=== PATIENT | female | born 1975 | race Caucasian/White ===

== ENCOUNTER 2018-04-25 18:12 | Emergency (ER) | payer SELFPAY ==
[2018-04-25] MEDS ORDERED: NA CHLORIDE 0.9% 1,000 ML ONE (18:55)
[2018-04-25 19:04] LABS: Urine Blood 1+ (NEG); Urine Glucose NEGATIVE (NEG); Urine Protein NEGATIVE (NEG); Urine Specific Gravity 1.015 (1.005-1.030)
--- NOTE | 2018-04-25 19:06 | RAD REPORT ---
EXAM DESCRIPTION: CT - Stone Protocol - 04/25/2018 6:54 pm CLINICAL HISTORY: Abdominal pain. Lower abdominal pain. Urinary frequency COMPARISON: 2012 TECHNIQUE: Computed axial tomography of the abdomen pelvis was obtained without oral or IV contrast. Lack of IV and oral contrast limits evaluation of solid organs, bowel, and vessels. Coronal reformat nirali images were obtained and reviewed. All CT scans are performed using dose optimization technique as appropriate and may include automated exposure control or mA/KV adjustment according to patient size. FINDINGS: Bilateral renal calculi are present without hydronephrosis. An ureteral calculus is not no nirali. A bladder calculus is not present. The bladder is distended. The wall is mildly thickened. The liver, spleen, pancreas and adrenals appear grossly normal There is no evidence of diverticulitis. The appendix appears normal IMPRESSION: Bilateral nonobstructing renal calculi Bladder distention Mild bladder wall thickening may indicate cystitis
[2018-04-25 19:14] LABS: Absolute Monocytes 0.6 K/uL (0.1-1.3); Absolute Neutrophil 4.7 K/uL (1.8-8.0); Basophils % 0.7 % (0-1.3); Hematocrit 32.7 % (36.0-45.0); Lymphocytes % 25.2 % (15.3-44.8); MCH 24.1 pg (27.0-35.0); MCV 75.7 fL (80-100); MPV 9.1 fL (7.6-11.3); Monocytes % 7.4 % (3.3-12.3); RBC Red Blood Cell Count 4.33 M/uL (3.86-4.86)
[2018-04-25 19:21] LABS: ALT/SGPT 16 U/L (12-78); AST/SGOT 8 U/L (15-37); Albumin 3.7 g/dL (3.4-5.0); Alkaline Phosphatase 86 U/L (45-117); BUN Blood Urea Nitrogen 6 mg/dL (7-18); Bicarbonate 24 mmol/L (21-32); Bilirubin Direct < 0.1 mg/dL (0-0.2); Bilirubin Total 0.2 mg/dL (0.2-1.0); Glucose Level 66 mg/dL (74-106); Lipase 172 U/L (73-393); Potassium 3.4 mmol/L (3.5-5.1); Sodium Level 142 mmol/L (136-145)
[2018-04-25] MEDS ORDERED: CEFTRIAXONE/SWI 1gm 1 GM/10 ML SYR ONE (19:24)
[2018-04-25 19:26] LABS: Urine Bacteria LOADED /HPF (<20); Urine RBC <5 /HPF (NONE SEEN)
[2018-04-25 19:27] LABS: Calcium Oxalate Crystals- Ur FEW (NONE SEEN); Urine Culture Reflex Order NOT NEEDED
[2018-04-25] MEDS ORDERED: KETOROLAC 30 MG/ML INJ ONE (19:27)
[2018-04-25] MEDS ORDERED: ONDANSETRON 4 MG/2 ML VIAL ONE (19:31)
[2018-04-25] MEDS ORDERED: FENTANYL CITR 100 MCG/2 ML ONE (20:04)
--- NOTE | 2018-04-25 20:31 | ER ---
Nurse's Notes [facility] Name: Britney Wright Age: 42 yrs Sex: Female : 1975 Arrival Date: 04/25/2018 Time: 18:14 Bed 28 Private MD: Diagnosis: Urinary tract infection, site not specified Presentation: 04/25 18:18 Presenting complaint: Patient states: "I was diagnosed with a UTI about a week ago and aa5 I'm still taking Cipro for it but it's getting worse, like my back is hurting now". Pt c/o lower back pain. Transition of care: patient was not received from another setting of care. Onset of symptoms was April 2018. Risk Assessment: Do you want to hurt yourself or someone else? Patient reports no desire to harm self or others. Initial Sepsis Screen: Does the patient meet any 2 criteria? No. Patient's initial sepsis screen is negative. Does the patient have a suspected source of infection? No. Patient's initial sepsis screen is negative. Care prior to arrival: None. 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 - Social history:: Smoking status: Patient/guardian denies using tobacco. - Ebola Screening: : No symptoms or risks identified at this time. Screenin:51 Abuse screen: Denies threats or abuse. Denies injuries from another. Nutritional rv screening: No deficits noted. Tuberculosis screening: No symptoms or risk factors identified. Fall Risk None identified. Assessment: 18:50 General: Appears in no apparent distress. uncomfortable, Behavior is calm, cooperative. rv Pain: Complains of pain in abdomen Pain currently is 7 out of 10 on a pain scale. Neuro: Level of Consciousness is awake, alert, obeys commands, Oriented to person, place, time, situation. Cardiovascular: Capillary refill < 3 seconds. Respiratory: Airway is patent. GI: No signs and/or symptoms were reported involving the gastrointestinal system. : No signs and/or symptoms were reported regarding the genitourinary system. EENT: No signs and/or symptoms were reported regarding the EENT system. Derm: Skin is intact. 20:05 Reassessment: No changes from previously documented assessment. Patient and/or family rv updated on plan of care and expected duration. Pain level reassessed. Patient is alert, oriented x 3, equal unlabored respirations, skin warm/dry/pink. Vital Signs: 18:21 BP 134 / 92; Pulse 97; Resp 16 S; Temp 99.0(TE); Pulse Ox 100% on R/A; Weight 72.57 kg aa5 (R); Height 5 ft. 5 in. (165.10 cm) (R); Pain 6/10; 18:51 BP 127 / 81; Pulse 90; Pulse Ox 98% on R/A; rv 19:23 BP 128 / 88; Pulse 83; Pulse Ox 100% on R/A; rv 20:04 BP 131 / 83; Pulse 79; Pulse Ox 100% on R/A; rv 18:21 Body Mass Index 26.63 (72.57 kg, 165.10 cm) aa5 ED Course: 17:10 Second set of blood cultures drawn by me. rv 18:14 Patient arrived in ED. as 18:19 Triage completed. aa5 18:19 Arm band placed on. aa5 18:22 Junior Santizo PA is PHCP. cp 18:23 Lencho Watkins MD is Attending Physician. cp 18:45 Inserted saline lock: 22 gauge in left forearm, using aseptic technique. Blood rv collected. 18:45 Initial lab(s) drawn, by me, sent to lab. First set of blood cultures drawn by me. rv 18:50 Basic Metabolic Panel Sent. rv 18:50 CT Stone Protocol Sent. rv 18:51 Patient has correct armband on for positive identification. Bed in low position. Call rv light in reach. Side rails up X 1. Adult w/ patient. Pulse ox on. NIBP on. 18:52 CT completed. Patient moved to CT via wheelchair. Patient moved back from CT. cw1 18:55 CT Stone Protocol In Process Unspecified. EDMS 20:42 No provider procedures requiring assistance completed. IV discontinued, bleeding rv controlled, No redness/swelling at site. Pressure dressing applied. Administered Medications: 19:14 Drug: NS 0.9% 1000 ml Route: IV; Rate: 1 bolus; Site: left forearm; rv 21:41 Follow up: IV Status: Completed infusion rv 19:19 Drug: Rocephin - (cefTRIAXone) 1 grams Route: IVPB; Infused Over: 30 mins; Site: left rv forearm; 21:41 Follow up: IV Status: Completed infusion rv 19:24 Drug: TORadol 30 mg Route: IVP; Site: left forearm; rv 19:51 Follow up: Response: Pain is unchanged, physician notified rv 19:24 Drug: Zofran 4 mg Route: IVP; Site: left forearm; rv 19:51 Follow up: Response: No adverse reaction rv 20:00 Drug: fentaNYL (PF) 25 mcg Route: IVP; Site: left forearm; rv 20:26 Follow up: Response: Pain is decreased rv 20:41 Drug: Bactrim (160 mg-800 mg (DS) 1 tablet Route: PO; rv 20:42 Follow up: Response: Medication administered at discharge. rv Outcome: 20:31 Discharge ordered by MD. cp 20:42 Discharged to home ambulatory. rv 20:42 Condition: improved 20:42 Discharge instructions given to patient, Instructed on discharge instructions, follow up and referral plans. medication usage, Demonstrated understanding of instructions, follow-up care, medications, Prescriptions given X 3. 20:43 Patient left the ED. rv Signatures: Dispatcher [employer] EDMS Coby Kerns Audri, RN RN aa5 Deepti Guerrier cw1 Junior Santizo PA PA cp Gurvinder Mendoza RN RN rv
--- NOTE | 2018-04-25 20:32 | EDPHYS ---
Physician Documentation [facility] Name: Britney Wright Age: 42 yrs Sex: Female : 1975 Arrival Date: 04/25/2018 Time: 18:14 Bed 28 Private MD: ED Physician Lencho Watkins HPI: 04/25 18:45 This 42 yrs old Female presents to ER via Ambulatory with complaints of Flank cp Pain, Pain With Urination. 18:45 The patient complains of pain in the mid back area. The pain does not radiate. cp 18:45 Onset: The symptoms/episode began/occurred gradually, and became worse today. cp Associated signs and symptoms: Pertinent positives: dysuria, Pertinent negatives: diarrhea, dizziness, fever, pain radiating to the lower extremities, vomiting. Patient reports being diagnosed with UTI 5 days ago and currently taking oral cipro. Patient reports worsening urinary symptoms. 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 - Social history:: Smoking status: Patient/guardian denies using tobacco. - Ebola Screening: : No symptoms or risks identified at this time. ROS: 18:50 Constitutional: Negative for body aches, chills, fever, poor PO intake. cp 18:50 Eyes: Negative for injury, pain, redness, and discharge. cp 18:50 ENT: Negative for drainage from ear(s), ear pain, sore throat, difficulty swallowing, difficulty handling secretions. 18:50 Cardiovascular: Negative for chest pain, edema, palpitations. 18:50 Respiratory: Negative for cough, shortness of breath, wheezing. 18:50 Abdomen/GI: Positive for abdominal pain, Negative for vomiting, diarrhea, constipation, black/tarry stool, rectal bleeding. 18:50 : Positive for flank pain, Negative for vaginal bleeding, vaginal discharge. 18:50 Skin: Negative for cellulitis, rash. 18:50 Neuro: Negative for altered mental status, dizziness, numbness, weakness. 18:50 All other systems are negative. Exam: 19:00 Constitutional: The patient appears in no acute distress, alert, awake, non-toxic, well cp developed, well nourished, uncomfortable. 19:00 Head/Face: Normocephalic, atraumatic. Eyes: Pupils equal round and reactive to light, cp extra-ocular motions intact. Lids and lashes normal. Conjunctiva and sclera are non-icteric and not injected. Cornea within normal limits. Periorbital areas with no swelling, redness, or edema. ENT: Nares patent. No nasal discharge, no septal abnormalities noted. Tympanic membranes are normal and external auditory canals are clear. Oropharynx with no redness, swelling, or masses, exudates, or evidence of obstruction, uvula midline. Mucous membranes moist. Neck: Trachea midline, no thyromegaly or masses palpated, and no cervical lymphadenopathy. Supple, full range of motion without nuchal rigidity, or vertebral point tenderness. No Meningismus. Chest/axilla: Normal chest wall appearance and motion. Nontender with no deformity. No lesions are appreciated. 19:00 Cardiovascular: Rate: normal, Rhythm: regular, Heart sounds: murmur, not appreciated, Edema: is not appreciated, JVD: is not appreciated. 19:00 Respiratory: the patient does not display signs of respiratory distress, Respirations: normal, no use of accessory muscles, no retractions, no splinting, no tachypnea, labored breathing, is not present, Breath sounds: are clear throughout, no decreased breath sounds, no stridor, no wheezing. 19:00 Abdomen/GI: Inspection: abdomen appears normal, Bowel sounds: active, all quadrants, Palpation: soft, in all quadrants, moderate abdominal tenderness, in the right lower quadrant and left lower quadrant. 19:00 Back: CVA tenderness, is noted bilaterally. 19:00 Skin: cellulitis, is not appreciated, no rash present. 19:00 Neuro: Orientation: to person, place \T\ time. Mentation: is normal, Motor: moves all fours, Sensation: no obvious gross deficits, Gait: is steady. Vital Signs: 18:21 BP 134 / 92; Pulse 97; Resp 16 S; Temp 99.0(TE); Pulse Ox 100% on R/A; Weight 72.57 kg aa5 (R); Height 5 ft. 5 in. (165.10 cm) (R); Pain 6/10; 18:51 BP 127 / 81; Pulse 90; Pulse Ox 98% on R/A; rv 19:23 BP 128 / 88; Pulse 83; Pulse Ox 100% on R/A; rv 20:04 BP 131 / 83; Pulse 79; Pulse Ox 100% on R/A; rv 18:21 Body Mass Index 26.63 (72.57 kg, 165.10 cm) aa5 MDM: 18:23 Patient medically screened. cp 19:00 Differential diagnosis: nephrolithiasis, pyelonephritis, UTI, sepsis. cp 20:30 Data reviewed: vital signs, nurses notes, lab test result(s), radiologic studies, CT cp scan. 20:30 Counseling: I had a detailed discussion with the patient and/or guardian regarding: the cp historical points, exam findings, and any diagnostic results supporting the discharge/admit diagnosis, lab results, radiology results, to return to the emergency department if symptoms worsen or persist or if there are any questions or concerns that arise at home. Response to treatment: the patient's symptoms have markedly improved after treatment, VSS. Pain improved. Discussed admission for IV antibiotics but patient would like to continue outpatient treatment. Will switch antibiotic therapy from cipro to Bactrim. 04/25 18:36 Order name: Basic Metabolic Panel cp 04/25 18:36 Order name: CBC with Diff; Complete Time: 19:20 cp 04/25 19:20 Interpretation: Normal except: HGB 10.4; HCT 32.7; MCV 75.7; MCH 24.1; MCHC 31.8; RDW cp 18.5; EOSINOPHIL % 6.0. 04/25 18:36 Order name: Creatinine for Radiology cp 04/25 18:36 Order name: Hepatic Function; Complete Time: 19:44 cp 04/25 18:36 Order name: Lipase; Complete Time: 19:44 cp 04/25 18:36 Order name: Lactate; Complete Time: 19:44 cp 04/25 18:36 Order name: Blood Culture Adult (2) cp 04/25 18:36 Order name: Procalcitonin cp 04/25 18:37 Order name: Basic Metabolic Panel; Complete Time: 19:44 EDMS 04/25 19:45 Interpretation: Normal except: K 3.4; CL 109; GLUC 66; BUN 6; GFR 78. cp 04/25 18:40 Order name: Urine Dipstick--Ancillary (enter results); Complete Time: 19:04 eb 04/25 19:05 Interpretation: Normal except: UBLD 1+; U NIT POSITIVE; UESTR 2+. cp 04/25 18:40 Order name: Urine --Ancillary (enter results); Complete Time: 19:04 eb 04/25 18:41 Order name: Urine Microscopic Only; Complete Time: 19:44 rv 04/25 19:45 Interpretation: Normal except: UWBC >50; UBACT LOADED; SQEPI >50. cp 04/25 18:41 Order name: CT Stone Protocol; Complete Time: 19:07 cp 04/25 18:36 Order name: IV Saline Lock; Complete Time: 18:49 cp 04/25 18:36 Order name: Labs collected and sent; Complete Time: 18:50 cp 04/25 18:36 Order name: Urine Dipstick-Ancillary (obtain specimen); Complete Time: 19:22 cp 04/25 18:36 Order name: Urine Test (obtain specimen); Complete Time: 19:22 cp Administered Medications: 19:14 Drug: NS 0.9% 1000 ml Route: IV; Rate: 1 bolus; Site: left forearm; rv 21:41 Follow up: IV Status: Completed infusion rv 19:19 Drug: Rocephin - (cefTRIAXone) 1 grams Route: IVPB; Infused Over: 30 mins; Site: left rv forearm; 21:41 Follow up: IV Status: Completed infusion rv 19:24 Drug: TORadol 30 mg Route: IVP; Site: left forearm; rv 19:51 Follow up: Response: Pain is unchanged, physician notified rv 19:24 Drug: Zofran 4 mg Route: IVP; Site: left forearm; rv 19:51 Follow up: Response: No adverse reaction rv 20:00 Drug: fentaNYL (PF) 25 mcg Route: IVP; Site: left forearm; rv 20:26 Follow up: Response: Pain is decreased rv 20:41 Drug: Bactrim (160 mg-800 mg (DS) 1 tablet Route: PO; rv 20:42 Follow up: Response: Medication administered at discharge. rv Disposition: 04/25/18 20:31 Discharged to Home. Impression: Urinary tract infection, site not specified. - Condition is Stable. - Discharge Instructions: Urinary Tract Infection, Adult. - Prescriptions for Tylenol- Codeine #3 300-30 mg Oral Tablet - take 2 tablets by ORAL route every 6 hours As needed; 15 tablet. Zofran 4 mg Oral Tablet - take 1 tablet by ORAL route every 12 hours As needed; 20 tablet. Bactrim DS 800- 160 mg Oral Tablet - take 1 tablet by ORAL route every 12 hours for 10 days; 20 tablet. - Medication Reconciliation Form, Thank You Letter, Antibiotic Education, Prescription Opioid Use form. - Follow up: Private Physician; When: 2 - 3 days; Reason: Recheck today's complaints. - Problem is new. - Symptoms have improved. Addendum: 04/28/2018 20:42 Co-signature as Attending Physician, Lencho Watkins MD. r n Signatures: Dispatcher [employer] EDMS Lencho Watkins MD MD rn Calderon, Audri RN RN aa5 Junior Santizo PA PA cp Vicente, Ronaldo RN RN rv Corrections: (The following items were deleted from the chart) 04/25 20:43 20:31 04/25/2018 20:31 Discharged to Home. Impression: Urinary tract infection, site rv not specified. Condition is Stable. Forms are Medication Reconciliation Form, Thank You Letter, Antibiotic Education, Prescription Opioid Use. Follow up: Private Physician; When: 2 - 3 days; Reason: Recheck today's complaints. Problem is new. Symptoms have improved. cp
[2018-04-25] MEDS ORDERED: SMZ./TMP. 800/160 MG TABLET ONE (20:44)
[2018-04-25 21:01] VITALS: TEMP 99
[2018-04-25 21:04] VITALS: O2SAT 100
[2018-04-25 21:05] VITALS: BP 131/83
== END 2018-04-25 20:43 | disposition home or self-care (01) ==
LOC: ER 18:12
DX: N39.0 Urinary tract infection, site not specified (principal); F32.9 Major depressive disorder, single episode, unspecified; F41.9 Anxiety disorder, unspecified; Z88.8 Allergy status to other drugs, medicaments and biological substances
CPT/HCPCS: 36415; 74176; 76377; 80048; 80076; 81003; 81015; 81025; 83605; 83690; 84145; 85025; 87040; 96365; 96366; 96375; 99284; J0696; J2405; J3010; J7030

== ENCOUNTER 2018-07-22 11:57 | Emergency (ER) | payer SELFPAY ==
[2018-07-22 12:50] LABS: Urine Bacteria LOADED /HPF (<20); Urine Culture Reflex Order REFLEXED; Urine RBC <5 /HPF (NONE SEEN)
[2018-07-22] MEDS ORDERED: ONDANSETRON 4 MG/2 ML VIAL ONE (13:04)
[2018-07-22] MEDS ORDERED: NA CHLORIDE 0.9% 1,000 ML ONE (13:05)
[2018-07-22 13:29] LABS: Urine Blood TRACE (NEG); Urine Glucose NEGATIVE (NEG); Urine Protein NEGATIVE (NEG); Urine Specific Gravity 1.025 (1.005-1.030); Urine pH 5.5 (5.0-7.0)
[2018-07-22 13:43] LABS: Absolute Lymphocytes (CBC) 1.9 K/uL (0.7-4.9); Absolute Monocytes 0.4 K/uL (0.1-1.3); Absolute Neutrophil 4.2 K/uL (1.8-8.0); Basophils % 0.2 % (0-1.3); Eosinophils % 2.9 % (0-4.4); Hematocrit 34.9 % (36.0-45.0); Lymphocytes % 28.2 % (15.3-44.8); MPV 9.1 fL (7.6-11.3); Monocytes % 5.6 % (3.3-12.3); RBC Red Blood Cell Count 4.64 M/uL (3.86-4.86)
[2018-07-22 13:58] LABS: Potassium 3.7 mmol/L (3.5-5.1)
[2018-07-22] MEDS ORDERED: CEFTRIAXONE/SWI 1gm 1 GM/10 ML SYR ONE (14:04)
--- NOTE | 2018-07-22 14:30 | RAD REPORT ---
EXAM DESCRIPTION: CTAbdomen Pelvis W Contrast - 07/22/2018 2:17 pm CLINICAL HISTORY: Abdominal pain. iv constrast only, r/o pyelonephritis COMPARISON: Stone Protocol dated 04/25/2018; CT-STONE PROTOCOL dated 11/22/2012 TECHNIQUE: Biphasic CT imaging of the abdomen and pelvis was performed with 100 ml non-ionic IV cont rast. All CT scans are performed using dose optimization technique as appropriate and may include automated exposure control or mA/KV adjustment according to patient size. FINDINGS: The lung bases are clear. The liver, spleen, pancreas, adrenal glands are within normal limits. Small bilateral renal calculi a re present without hydronephrosis. The largest stone measures 5-6 mm in the inferior calyx of the rig ht kidney. No pyelonephritis findings. No bowel obstruction, free air, free fluid or abscess. The appendix is normal. No evidence of signi ficant lymphadenopathy. No suspicious bony findings. The urinary bladder wall is quite thick. IMPRESSION: Bilateral nephrolithiasis without hydronephrosis. The urinary bladder wall is quite thick suggesting cystitis. Correlation with urinalysis is advised.
[2018-07-22] MEDS ORDERED: KETOROLAC 30 MG/ML INJ ONE (14:41)
--- NOTE | 2018-07-22 14:49 | ER ---
Nurse's Notes [facility] Name: Britney Wright Age: 43 yrs Sex: Female : 1975 Arrival Date: 07/22/2018 Time: 12:00 Bed 6 Private MD: RADHA BOWER Diagnosis: Cystitis Presentation: 07/22 12:07 Presenting complaint: Patient states: Back pain, burning with urination for 1 week. aj Transition of care: patient was not received from another setting of care. Onset of symptoms was July 14, 2018. Risk Assessment: Do you want to hurt yourself or someone else? Patient reports no desire to harm self or others. Initial Sepsis Screen: Does the patient meet any 2 criteria? No. Patient's initial sepsis screen is negative. Does the patient have a suspected source of infection? No. Patient's initial sepsis screen is negative. Care prior to arrival: None. 12:07 Method Of Arrival: Ambulatory aj 12:07 Acuity: FRED 3 aj Triage Assessment: 12:08 General: Appears in no apparent distress. comfortable, Behavior is calm, cooperative, aj appropriate for age. Pain: Complains of pain in mid back area. Neuro: Level of Consciousness is awake, alert, obeys commands, Oriented to person, place, time, situation, Appropriate for age. Respiratory: Airway is patent Respiratory effort is even, unlabored, Respiratory pattern is regular, symmetrical. : Reports burning with urination, pain in bilateral in lower back. Derm: Skin is intact, is healthy with good turgor, Skin is pink, warm \T\ dry. normal. 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 - Social history:: Smoking status: Patient/guardian denies using tobacco. - Ebola Screening: : Patient negative for fever greater than or equal to 101.5 degrees Fahrenheit, and additional compatible Ebola Virus Disease symptoms Patient denies exposure to infectious person Patient denies travel to an Ebola-affected area in the 21 days before illness onset No symptoms or risks identified at this time. Screenin:12 Abuse screen: Denies threats or abuse. Denies injuries from another. Nutritional ph screening: No deficits noted. Tuberculosis screening: No symptoms or risk factors identified. Fall Risk None identified. Assessment: 12:45 General: Appears in no apparent distress. uncomfortable, Behavior is calm, cooperative, ph appropriate for age, Reports chills for fever for > 3 days. Pain: Complains of pain in mid back area and suprapubic area. Neuro: Level of Consciousness is awake, alert, obeys commands, Oriented to person, place, time, situation. Cardiovascular: Capillary refill < 3 seconds in bilateral fingers Patient's skin is warm and dry. Respiratory: Airway is patent Respiratory effort is even, unlabored, Respiratory pattern is regular, symmetrical. GI: Abdomen is round non-distended, Reports lower abdominal pain, nausea, Patient currently denies diarrhea, vomiting. : Reports burning with urination, pain in bilateral in suprapubic area in lower back with urination, urinary frequency. Derm: Skin is intact, is healthy with good turgor, Skin is pink, warm \T\ dry. Musculoskeletal: Circulation, motion, and sensation intact. Range of motion: intact in all extremities. 13:30 Reassessment: Patient appears in no apparent distress at this time. Patient and/or ph family updated on plan of care and expected duration. Pain level reassessed. Patient is alert, oriented x 3, equal unlabored respirations, skin warm/dry/pink. 14:40 Reassessment: Patient appears in no apparent distress at this time. Patient and/or ph family updated on plan of care and expected duration. Pain level reassessed. Patient is alert, oriented x 3, equal unlabored respirations, skin warm/dry/pink. Pt continues to c/o pain in back and low abdomen, ERP notified, see MAR. 16:02 Reassessment: Patient appears in no apparent distress at this time. Patient and/or ph family updated on plan of care and expected duration. Pain level reassessed. Patient is alert, oriented x 3, equal unlabored respirations, skin warm/dry/pink. Pt reports that pain has improved, d/c home w/ SO. Vital Signs: 12:08 BP 129 / 92; Pulse 101; Resp 20; Temp 100.3; Pulse Ox 99% on R/A; Weight 72.57 kg; aj Height 5 ft. 5 in. (165.10 cm); 13:00 BP 122 / 89; Pulse 98; Resp 18; Pulse Ox 99% on R/A; ph 14:30 BP 118 / 78; Pulse 94; Resp 18; Pulse Ox 99% on R/A; ph 15:30 BP 121 / 80; Pulse 87; Resp 18; Temp 98.9; Pulse Ox 99% on R/A; ph 12:08 Body Mass Index 26.63 (72.57 kg, 165.10 cm) aj ED Course: 12:00 Patient arrived in ED. sb2 12:01 RADHA BOWER is Private Physician. sb2 12:07 Triage completed. aj 12:08 Arm band placed on left wrist. Patient placed in waiting room, Patient notified of wait aj time. 12:19 Olamide Cook FNP-C is PHCP. kb 12:19 Junior Smith MD is Attending Physician. kb 12:34 Urine collected: clean catch specimen, cloudy, fozia colored. jb1 12:46 Cherri Trejo, RN is Primary Nurse. ph 13:50 Radiology exam delayed due to lab results not completed at this time. (BUN/Creatinine). nj 14:[address] via wheelchair. sj 14:11 CT completed. Patient tolerated procedure well. Patient moved back from CT. sj 14:13 Patient has correct armband on for positive identification. Bed in low position. Call ph light in reach. Side rails up X 1. Pulse ox on. NIBP on. Warm blanket given. 14:17 CT Abd/Pelvis - W/Contrast In Process Unspecified. EDMS 14:30 Inserted saline lock: 20 gauge in right antecubital area, using aseptic technique. ph 16:15 No provider procedures requiring assistance completed. intact, bleeding controlled, No ph redness/swelling at site. Pressure dressing applied. Administered Medications: 13:30 Drug: NS 0.9% 1000 ml Route: IV; Rate: 1000 ml; Site: right antecubital; ph 16:02 Follow up: Response: No adverse reaction; IV Status: Completed infusion ph 13:30 Drug: Zofran 4 mg Route: IVP; Site: right antecubital; ph 16:02 Follow up: Response: No adverse reaction; Nausea is decreased ph 14:00 Drug: Rocephin 1 grams Route: IV; Rate: calculated rate; Site: right antecubital; la1 16:02 Follow up: Response: No adverse reaction; IV Status: Completed infusion ph 14:34 Drug: TORadol 30 mg Route: IVP; Site: left antecubital; ph 14:50 Follow up: Response: No adverse reaction; Pain is unchanged, physician notified ph 15:03 Drug: morphine 4 mg Route: IVP; Site: right antecubital; la1 16:01 Follow up: Response: No adverse reaction; Pain is decreased ph Outcome: 14:49 Discharge ordered by MD. kb 16:15 Patient left the ED. ph 16:15 Discharged to home ambulatory. ph 16:15 Condition: good 16:15 Discharge instructions given to patient, Instructed on discharge instructions, follow up and referral plans. medication usage, Demonstrated understanding of instructions, follow-up care, medications, Prescriptions given X 2. Signatures: Dispatcher [employer] EDRaul Westfall Kristin, CALIBRATION TECHNICIAN-C CALIBRATION TECHNICIAN-Ckb Mariana Bourgeois, RN Naomie Vega Lee, RN RN la1 Cherri Trejo RN RN Micha, Jonelle Drake2
--- NOTE | 2018-07-22 14:49 | EDPHYS ---
Physician Documentation [facility] Name: Britney Wright Age: 43 yrs Sex: Female : 1975 Arrival Date: 07/22/2018 Time: 12:00 Bed 6 Private MD: RADHA BOWER ED Physician Junior Smith HPI: 07/22 13:27 This 43 yrs old Female presents to ER via Ambulatory with complaints of kb Urinary Problem. 13:27 The patient presents with flank pain, bilaterally, urinary symptoms, dysuria, kb frequency. Onset: The symptoms/episode began/occurred 1 week(s) ago. Modifying factors: The symptoms are alleviated by nothing, the symptoms are aggravated by urinating. Associated signs and symptoms: Pertinent positives: dysuria, fever, urinary frequency. Severity of symptoms: At their worst the symptoms were moderate, in the emergency department the symptoms are unchanged. The patient has experienced similar episodes in the past, several times. The patient has not recently seen a physician. 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 - Social history:: Smoking status: Patient/guardian denies using tobacco. - Ebola Screening: : Patient negative for fever greater than or equal to 101.5 degrees Fahrenheit, and additional compatible Ebola Virus Disease symptoms Patient denies exposure to infectious person Patient denies travel to an Ebola-affected area in the 21 days before illness onset No symptoms or risks identified at this time. ROS: 13:29 Positive for urinary symptoms, flank pain, urinary frequency, burning with kb urination, foul smelling urine. 13:29 ENT: Negative for injury, pain, and discharge, Neck: Negative for injury, pain, and swelling, Cardiovascular: Negative for chest pain, palpitations, and edema, Respiratory: Negative for shortness of breath, cough, wheezing, and pleuritic chest pain, Abdomen/GI: Negative for abdominal pain, nausea, vomiting, diarrhea, and constipation, MS/Extremity: Negative for injury and deformity, Skin: Negative for injury, rash, and discoloration, Neuro: Negative for headache, weakness, numbness, tingling, and seizure. 13:29 Constitutional: Positive for chills, fever, malaise, Negative for body aches, fatigue, poor PO intake, weight loss. Exam: 13:29 Constitutional: This is a well developed, well nourished patient who is awake, alert, kb and in no acute distress. Head/Face: Normocephalic, atraumatic. Chest/axilla: Normal chest wall appearance and motion. Nontender with no deformity. No lesions are appreciated. Cardiovascular: Regular rate and rhythm with a normal S1 and S2. No gallops, murmurs, or rubs. Normal PMI, no JVD. No pulse deficits. Respiratory: Lungs have equal breath sounds bilaterally, clear to auscultation and percussion. No rales, rhonchi or wheezes noted. No increased work of breathing, no retractions or nasal flaring. Abdomen/GI: Soft, non-tender, with normal bowel sounds. No distension or tympany. No guarding or rebound. No evidence of tenderness throughout. Skin: Warm, dry with normal turgor. Normal color with no rashes, no lesions, and no evidence of cellulitis. MS/ Extremity: Pulses equal, no cyanosis. Neurovascular intact. Full, normal range of motion. Neuro: Awake and alert, GCS 15, oriented to person, place, time, and situation. Cranial nerves II-XII grossly intact. Motor strength 5/5 in all extremities. Sensory grossly intact. Cerebellar exam normal. Normal gait. 13:29 Back: CVA tenderness, that is moderate, is noted bilaterally. Vital Signs: 12:08 BP 129 / 92; Pulse 101; Resp 20; Temp 100.3; Pulse Ox 99% on R/A; Weight 72.57 kg; aj Height 5 ft. 5 in. (165.10 cm); 13:00 BP 122 / 89; Pulse 98; Resp 18; Pulse Ox 99% on R/A; ph 14:30 BP 118 / 78; Pulse 94; Resp 18; Pulse Ox 99% on R/A; ph 15:30 BP 121 / 80; Pulse 87; Resp 18; Temp 98.9; Pulse Ox 99% on R/A; ph 12:08 Body Mass Index 26.63 (72.57 kg, 165.10 cm) aj MDM: 12:19 Patient medically screened. kb 13:28 Data reviewed: vital signs, nurses notes. Data interpreted: Pulse oximetry: on room air kb is 99 %. Interpretation: normal. 14:47 Counseling: I had a detailed discussion with the patient and/or guardian regarding: the kb historical points, exam findings, and any diagnostic results supporting the discharge/admit diagnosis, lab results, radiology results, the need for outpatient follow up, a family practitioner, to return to the emergency department if symptoms worsen or persist or if there are any questions or concerns that arise at home. 16:32 ED course: Pt returned with prescriptions asking for different medications because the kb ones prescribed were each $100. Prescriptions written for ibuprofen 800mg PO TID PRN pain and Augmentin 875mg PO BID for 10 days. 07/22 12:16 Order name: Urine Culture [facility] 07/22 12:16 Order name: Urine Microscopic Only; Complete Time: 12:53 snw 07/22 12:38 Order name: CBC with Diff; Complete Time: 13:53 kb 07/22 12:38 Order name: Basic Metabolic Panel; Complete Time: 14:02 kb 07/22 12:52 Order name: Urine Dipstick--Ancillary (enter results); Complete Time: 13:30 ag 07/22 12:52 Order name: Urine --Ancillary (enter results); Complete Time: 13:30 ag 07/22 12:16 Order name: Urine Test (obtain specimen); Complete Time: 12:35 snw 07/22 12:16 Order name: Urine Dipstick-Ancillary (obtain specimen); Complete Time: 12:35 snw 07/22 12:38 Order name: CT Abd/Pelvis - W/Contrast; Complete Time: 14:40 kb Administered Medications: 13:30 Drug: NS 0.9% 1000 ml Route: IV; Rate: 1000 ml; Site: right antecubital; ph 16:02 Follow up: Response: No adverse reaction; IV Status: Completed infusion ph 13:30 Drug: Zofran 4 mg Route: IVP; Site: right antecubital; ph 16:02 Follow up: Response: No adverse reaction; Nausea is decreased ph 14:00 Drug: Rocephin 1 grams Route: IV; Rate: calculated rate; Site: right antecubital; la1 16:02 Follow up: Response: No adverse reaction; IV Status: Completed infusion ph 14:34 Drug: TORadol 30 mg Route: IVP; Site: left antecubital; ph 14:50 Follow up: Response: No adverse reaction; Pain is unchanged, physician notified ph 15:03 Drug: morphine 4 mg Route: IVP; Site: right antecubital; la1 16:01 Follow up: Response: No adverse reaction; Pain is decreased ph Disposition: 07/22/18 14:49 Discharged to Home. Impression: Cystitis. - Condition is Stable. - Discharge Instructions: Urinary Tract Infection, Adult, [id number]. - Prescriptions for Diclofenac Sodium 75 mg Oral Tablet, Delayed Release (E.C.) - take 1 tablet by ORAL route 2 times per day As needed; 30 tablet. cefpodoxime 100 mg Oral Tablet - take 1 tablet by ORAL route every 12 hours for 10 days take with food; 20 tablet. - Medication Reconciliation Form, Thank You Letter, Antibiotic Education, Prescription Opioid Use form. - Follow up: Emergency Department; When: As needed; Reason: Worsening of condition. Follow up: Private Physician; When: 2 - 3 days; Reason: Recheck today's complaints, Continuance of care, Re-evaluation by your physician. Signatures: Dispatcher [employer] EDOlamide Guzman, TWITCHELL OPERATOR-C TWITCHELL OPERATOR-CkMariana Almanza RN Vasthi Oliveira FNP-C TWITCHELL OPERATOR-Malik Chao RN RN laCherri Perry RN RN ph Corrections: (The following items were deleted from the chart) 16:15 14:49 07/22/2018 14:49 Discharged to Home. Impression: Cystitis. Condition is Stable. ph Forms are Medication Reconciliation Form, Thank You Letter, Antibiotic Education, Prescription Opioid Use. Follow up: Emergency Department; When: As needed; Reason: Worsening of condition. Follow up: Private Physician; When: 2 - 3 days; Reason: Recheck today's complaints, Continuance of care, Re-evaluation by your physician. kb
[2018-07-22] MEDS ORDERED: MORPHINE 4 MG/ML SYR ONE (15:09)
[2018-07-22 17:24] VITALS: TEMP 100.3; O2SAT 99
[2018-07-22 17:26] VITALS: BP 122/89
== END 2018-07-22 16:15 | disposition home or self-care (01) ==
LOC: ER 11:57
DX: N30.90 Cystitis, unspecified without hematuria (principal); F41.9 Anxiety disorder, unspecified; F32.9 Major depressive disorder, single episode, unspecified; Z88.8 Allergy status to other drugs, medicaments and biological substances
CPT/HCPCS: 36415; 74177; 80048; 81003; 81015; 81025; 85025; 87086; 87088; J0696; J2405; J7030; Q9967

== ENCOUNTER 2018-08-19 10:55 | Emergency (ER) | payer SELFPAY ==
--- NOTE | 2018-08-19 13:49 | RAD REPORT ---
EXAM DESCRIPTION: CT - Stone Protocol - 08/19/2018 1:36 pm CLINICAL HISTORY: Abdominal pain. Left flank pain COMPARISON: July 22, 2018 TECHNIQUE: Computed axial tomography of the abdomen pelvis was obtained without oral or IV contrast. Lack of IV and oral contrast limits evaluation of solid organs, bowel, and vessels. Coronal reformat nirali images were obtained and reviewed. All CT scans are performed using dose optimization technique as appropriate and may include automated exposure control or mA/KV adjustment according to patient size. FINDINGS: Multiple, bilateral renal calculi are again demonstrated. Hydronephrosis is not seen. A ur eteral calculus is not noted. Bladder calculus is not seen. The bladder is distended. The liver, spleen, pancreas and adrenals appear grossly normal There is no evidence of diverticulitis. The appendix appears normal A 4.8 centimeter mass extends off of the posterior aspect of the uterus. Bilateral ovarian cystic mas ses are present measuring up to 3.8 centimeters A tiny umbilical hernia is seen IMPRESSION: Multiple, nonobstructing bilateral renal calculi 4.8 centimeter mass extending off the posterior aspect uterus probably represents a subserosal fibroi d Bilateral ovarian cystic masses likely benign. Follow-up ultrasound couple months is recommended to assess stability/resolution Bladder distention
[2018-08-19 13:53] LABS: Urine Bacteria LOADED /HPF (<20); Urine Culture Reflex Order NOT NEEDED; Urine Mucus 2+ /HPF (NONE SEEN); Urine RBC <5 /HPF (NONE SEEN)
[2018-08-19] MEDS ORDERED: ONDANSETRON 4 MG/2 ML VIAL ONE (13:53)
[2018-08-19] MEDS ORDERED: KETOROLAC 30 MG/ML INJ ONE (13:53)
[2018-08-19] MEDS ORDERED: NA CHLORIDE 0.9% 1,000 ML ONE (13:53)
[2018-08-19 14:14] LABS: Absolute Lymphocytes (CBC) 1.5 K/uL (0.7-4.9); Absolute Monocytes 0.4 K/uL (0.1-1.3); Absolute Neutrophil 3.5 K/uL (1.8-8.0); Basophils % 0.3 % (0-1.3); Eosinophils % 5.6 % (0-4.4); Hematocrit 33.1 % (36.0-45.0); Lymphocytes % 26.3 % (15.3-44.8); Monocytes % 6.5 % (3.3-12.3); RBC Red Blood Cell Count 4.41 M/uL (3.86-4.86)
[2018-08-19] MEDS ORDERED: CEFTRIAXONE/SWI 1gm 1 GM/10 ML SYR ONE (14:25)
[2018-08-19] MEDS ORDERED: MORPHINE 4 MG/ML SYR ONE (14:25)
[2018-08-19 14:38] LABS: ALT/SGPT 18 U/L (12-78); AST/SGOT 9 U/L (15-37); Albumin 3.6 g/dL (3.4-5.0); Alkaline Phosphatase 73 U/L (45-117); BUN Blood Urea Nitrogen 12 mg/dL (7-18); Bicarbonate 26 mmol/L (21-32); Bilirubin Direct < 0.1 mg/dL (0-0.2); Bilirubin Total 0.3 mg/dL (0.2-1.0); Glucose Level 76 mg/dL (74-106); Lipase 126 U/L (73-393); Potassium 3.5 mmol/L (3.5-5.1); Sodium Level 145 mmol/L (136-145)
[2018-08-19] MEDS ORDERED: PIPER/TAZO/NS 3.375gm 3.375 GM/100 ML BAG ONE (15:03)
--- NOTE | 2018-08-19 15:10 | ER ---
Nurse's Notes [facility] Name: Britney Wright Age: 43 yrs Sex: Female : 1975 Arrival Date: 08/19/2018 Time: 10:59 Bed 15 Private MD: out of town, doctor Diagnosis: Urinary tract infection, site not specified;Calculus of kidney;Other ovarian cysts Presentation: 08/19 11:12 Presenting complaint: Patient states: left flank pain x 4 days. history of frequent sv UTIs and "walled off kidney stones". Transition of care: patient was not received from another setting of care. Onset of symptoms was August 15, 2018. Risk Assessment: Do you want to hurt yourself or someone else? Patient reports no desire to harm self or others. Initial Sepsis Screen: Does the patient meet any 2 criteria? No. Patient's initial sepsis screen is negative. Does the patient have a suspected source of infection? No. Patient's initial sepsis screen is negative. Care prior to arrival: None. 11:12 Method Of Arrival: Ambulatory sv 11:12 Acuity: FRED 3 sv Historical: - Allergies: 11:16 Phenergan; sv - PMHx: 11:16 Anxiety; Depression; Kidney stones; sv - PSHx: 11:16 ; Tubal ligation; sv - Immunization history:: Adult Immunizations up to date. - Social history:: Smoking status: Patient/guardian denies using tobacco. - Ebola Screening: : Patient denies exposure to infectious person Patient denies travel to an Ebola-affected area in the 21 days before illness onset. Screenin:00 Abuse screen: Denies threats or abuse. Denies injuries from another. Nutritional aj screening: No deficits noted. Tuberculosis screening: No symptoms or risk factors identified. Fall Risk None identified. Assessment: 14:00 General: Appears in no apparent distress. comfortable, Behavior is calm, cooperative, aj appropriate for age. Pain: Complains of pain in left mid back. Neuro: Level of Consciousness is awake, alert, obeys commands, Oriented to person, place, time, situation, Appropriate for age. Respiratory: Airway is patent Respiratory effort is even, unlabored, Respiratory pattern is regular, symmetrical. Derm: Skin is intact, is healthy with good turgor, Skin is pink, warm \\T\\ dry. normal. Musculoskeletal: Reports pain in low back area and right mid back. 15:33 Reassessment: Patient appears in no apparent distress at this time. No changes from aj previously documented assessment. Patient and/or family updated on plan of care and expected duration. Pain level reassessed. Patient is alert, oriented x 3, equal unlabored respirations, skin warm/dry/pink. Patient states feeling better. Patient states symptoms have improved. 16:10 Reassessment: pt on phone call at this time, pt states " the tylenol with codeine gives ss her headaches, migraines. I would like to have the tramadol prescription instead of the tylenol with codeine." Sixto CASTRO notified, educated pt to come to the department before 6 pm to see the pt for a change in prescription, pt stated understanding. Vital Signs: 11:16 BP 130 / 81; Pulse 101; Resp 15; Temp 97.8(TE); Pulse Ox 100% on R/A; Weight 72.57 kg; sv Height 5 ft. 5 in. (165.10 cm); Pain 9/10; 14:48 BP 129 / 84; Pulse 99; Resp 17; Pulse Ox 99% on R/A; aj 11:16 Body Mass Index 26.63 (72.57 kg, 165.10 cm) sv ED Course: 10:59 Patient arrived in ED. dl4 10:59 out of town, doctor is Private Physician. dl4 11:16 Triage completed. sv 11:16 Arm band placed on right wrist. sv 12:48 Junior Santizo PA is PHCP. cp 12:48 Von Tse MD is Attending Physician. cp 13:19 Mariana Bourgeois, PILO is Primary Nurse. aj 13:35 CT completed. Patient tolerated procedure well. Patient moved to CT via wheelchair. sj Patient moved back from CT. 13:36 CT Stone Protocol In Process Unspecified. EDMS 14:01 Inserted saline lock: 20 gauge in right antecubital area, using aseptic technique. aj Blood collected. 15:08 Irma Byrne MD is Referral Physician. cp 15:33 Patient has correct armband on for positive identification. aj 15:33 No provider procedures requiring assistance completed. IV discontinued, intact, aj bleeding controlled, No redness/swelling at site. Pressure dressing applied. Administered Medications: 14:01 Drug: NS 0.9% 1000 ml Route: IV; Rate: 1 bolus; Site: right antecubital; aj 15:34 Follow up: Response: No adverse reaction; IV Status: Completed infusion; IV Intake: aj 1000ml 14:02 Drug: Zofran 4 mg Route: IVP; Site: right antecubital; aj 14:26 Follow up: Response: No adverse reaction aj 14:02 Not Given (Patient Refused): TORadol 30 mg IVP once aj 14:26 Drug: Rocephin 1 grams Route: IV; Rate: bolus; Site: right antecubital; aj 14:28 Follow up: Response: No adverse reaction; IV Status: Completed infusion; IV Intake: 10mlaj 14:26 Drug: morphine 4 mg Route: IVP; Site: right antecubital; aj 15:34 Follow up: Response: No adverse reaction aj 15:00 Drug: Zosyn 3.375 grams Route: IVPB; Infused Over: 60 mins; Site: right antecubital; aj 15:34 Follow up: Response: No adverse reaction; IV Status: Completed infusion; IV Intake: aj 100ml Intake: 14:28 IV: 10ml; Total: 10ml. aj 15:34 IV: 100ml; Total: 110ml. aj 15:34 IV: 1000ml; Total: 1110ml. Outcome: 15:10 Discharge ordered by MD. cp 15:33 Discharged to home ambulatory, with family. aj 15:33 Condition: good 15:33 Discharge instructions given to patient, Instructed on discharge instructions, follow up and referral plans. medication usage, Demonstrated understanding of instructions, follow-up care, medications, Prescriptions given X 3. 15:45 Patient left the ED. aj Addendum: 08/23/2018 08:35 Addendum: Culture Results: Positive urine culture. No further action required. Bacteria i w sensitive to prescribed antibiotic. Signatures: Dispatcher [employer] Evelia Hardin RN RN sv Myers, Amanda, RN RN aj Jones, Susan sj Williams, Irene, RN RN iw Smirch, Shelby, RN RN ss Page, Corey, PA PA cp Luna, David dl4
--- NOTE | 2018-08-19 15:11 | EDPHYS ---
Physician Documentation [facility] Name: Britney Wright Age: 43 yrs Sex: Female : 1975 Arrival Date: 08/19/2018 Time: 10:59 Bed 15 Private MD: out of town, doctor ED Physician Von Tse HPI: 08/19 13:00 This 43 yrs old Female presents to ER via Ambulatory with complaints of Low cp Back Pain. 13:00 The patient presents with pain that is acute, with no known mechanism of injury. The cp symptoms are located in the mid back area. Onset: The symptoms/episode began/occurred 1 month(s) ago, and became worse 4 day(s) ago. Historical: - Allergies: 11:16 Phenergan; sv - PMHx: 11:16 Anxiety; Depression; Kidney stones; sv - PSHx: 11:16 ; Tubal ligation; sv - Immunization history:: Adult Immunizations up to date. - Social history:: Smoking status: Patient/guardian denies using tobacco. - Ebola Screening: : Patient denies exposure to infectious person Patient denies travel to an Ebola-affected area in the 21 days before illness onset. ROS: 13:10 Constitutional: Negative for body aches, chills, fever, poor PO intake. cp 13:10 Eyes: Negative for injury, pain, redness, and discharge. cp Exam: 13:15 Constitutional: The patient appears in no acute distress, alert, awake, non-toxic, well cp developed, well nourished. 13:15 Head/Face: Normocephalic, atraumatic. cp 13:15 Eyes: Periorbital structures: appear normal, Conjunctiva: normal, no exudate, no injection, Sclera: no appreciated abnormality, Lids and lashes: appear normal, bilaterally. 13:15 ENT: External ear(s): are unremarkable, Nose: is normal, Mouth: is normal, Posterior pharynx: is normal, airway is patent, no erythema, no exudate. 13:15 Chest/axilla: Inspection: normal, Palpation: is normal, no crepitus, no tenderness. 13:15 Cardiovascular: Rate: tachycardic, Rhythm: regular. Vital Signs: 11:16 BP 130 / 81; Pulse 101; Resp 15; Temp 97.8(TE); Pulse Ox 100% on R/A; Weight 72.57 kg; sv Height 5 ft. 5 in. (165.10 cm); Pain 9/10; 14:48 BP 129 / 84; Pulse 99; Resp 17; Pulse Ox 99% on R/A; aj 11:16 Body Mass Index 26.63 (72.57 kg, 165.10 cm) sv MDM: 12:51 Patient medically screened. cp 15:10 Data reviewed: vital signs, nurses notes, lab test result(s), radiologic studies, CT cp scan, and as a result, I will discharge patient. 15:10 Counseling: I had a detailed discussion with the patient and/or guardian regarding: the cp historical points, exam findings, and any diagnostic results supporting the discharge/admit diagnosis, lab results, radiology results, the need for outpatient follow up, an OB/Gyne specialist, a urologist, to return to the emergency department if symptoms worsen or persist or if there are any questions or concerns that arise at home. Response to treatment: the patient's symptoms have markedly improved after treatment, and as a result, I will discharge patient. 08/19 12:52 Order name: Urine Microscopic Only; Complete Time: 14:10 08/19 14:10 Interpretation: Normal except: UWBC 20-50; UBACT LOADED; SQEPI 5-10. 08/19 12:52 Order name: Urine Culture bd 08/19 12:54 Order name: Urine Dipstick--Ancillary (enter results); Complete Time: 15:18 08/19 12:54 Order name: Urine --Ancillary (enter results); Complete Time: 15:18 bd 08/19 13:02 Order name: Basic Metabolic Panel; Complete Time: 14:43 cp 08/19 14:44 Interpretation: Normal except: CL 113; GFR 83; CA 8.2. cp 08/19 13:02 Order name: CBC with Diff; Complete Time: 14:24 cp 08/19 14:24 Interpretation: Normal except: HGB 10.3; HCT 33.1; MCV 75.0; MCH 23.4; MCHC 31.2; RDW cp 17.0; EOSINOPHIL % 5.6. 08/19 13:02 Order name: Creatinine for Radiology; Complete Time: 14:43 cp 08/19 13:02 Order name: Hepatic Function; Complete Time: 14:43 cp 08/19 13:02 Order name: Lipase; Complete Time: 14:43 cp 08/19 13:02 Order name: CT Stone Protocol; Complete Time: 14:10 08/19 14:25 Interpretation: Report reviewed. 08/19 13:02 Order name: IV Saline Lock; Complete Time: 14:02 08/19 13:02 Order name: Labs collected and sent; Complete Time: 14:02 cp Administered Medications: 14:01 Drug: NS 0.9% 1000 ml Route: IV; Rate: 1 bolus; Site: right antecubital; aj 15:34 Follow up: Response: No adverse reaction; IV Status: Completed infusion; IV Intake: aj 1000ml 14:02 Drug: Zofran 4 mg Route: IVP; Site: right antecubital; aj 14:26 Follow up: Response: No adverse reaction aj 14:02 Not Given (Patient Refused): TORadol 30 mg IVP once aj 14:26 Drug: Rocephin 1 grams Route: IV; Rate: bolus; Site: right antecubital; aj 14:28 Follow up: Response: No adverse reaction; IV Status: Completed infusion; IV Intake: 10mlaj 14:26 Drug: morphine 4 mg Route: IVP; Site: right antecubital; aj 15:34 Follow up: Response: No adverse reaction aj 15:00 Drug: Zosyn 3.375 grams Route: IVPB; Infused Over: 60 mins; Site: right antecubital; aj 15:34 Follow up: Response: No adverse reaction; IV Status: Completed infusion; IV Intake: aj 100ml Disposition: 08/19/18 15:10 Discharged to Home. Impression: Urinary tract infection, site not specified, Calculus of kidney, Other ovarian cysts. - Condition is Stable. - Discharge Instructions: Kidney Stones, Ovarian Cyst, Urinary Tract Infection, Adult. - Prescriptions for Augmentin 875- 125 mg Oral Tablet - take 1 tablet by ORAL route every 12 hours for 10 days; 20 tablet. Tylenol- Codeine #3 300-30 mg Oral Tablet - take 2 tablets by ORAL route every 6 hours As needed; 20 tablet. Zofran 4 mg Oral Tablet - take 1 tablet by ORAL route every 12 hours As needed; 20 tablet. - Medication Reconciliation Form, Thank You Letter, Antibiotic Education, Prescription Opioid Use form. - Follow up: Irma Byrne MD; When: 2 - 3 days; Reason: kidney stones and UTI. Signatures: Dispatcher [employer] Evelia Hardin, RN RN Mariana Leonardo RN RN Junior Penn PA PA cp Corrections: (The following items were deleted from the chart) 14:44 14:43 Normal except: CL 113; GFR 83. cp cp 15:45 15:10 08/19/2018 15:10 Discharged to Home. Impression: Urinary tract infection, site aj not specified; Calculus of kidney; Other ovarian cysts. Condition is Stable. Forms are Medication Reconciliation Form, Thank You Letter, Antibiotic Education, Prescription Opioid Use. Follow up: Irma Byrne; When: 2 - 3 days; Reason: kidney stones and UTI. cp
[2018-08-19 15:15] LABS: Urine Blood TRACE (NEG); Urine Glucose NEGATIVE (NEG); Urine Protein NEGATIVE (NEG)
[2018-08-19 16:11] VITALS: TEMP 97.8
[2018-08-19 16:12] VITALS: BP 129/84; O2SAT 99
== END 2018-08-19 15:45 | disposition home or self-care (01) ==
LOC: ER 10:55
DX: N39.0 Urinary tract infection, site not specified (principal); N20.0 Calculus of kidney; N83.299 Other ovarian cyst, unspecified side; Z88.8 Allergy status to other drugs, medicaments and biological substances; Z87.442 Personal history of urinary calculi
CPT/HCPCS: 36415; 74176; 76377; 80048; 80076; 81003; 81015; 81025; 83690; 85025; 87077; 87086; 87088; 87186; 96361; 96365; 96375; 99284; J0696; J2405; J2543; J7030

== ENCOUNTER 2019-01-13 08:53 | Emergency (ER) | payer SELFPAY ==
[2019-01-13] MEDS ORDERED: NA CHLORIDE 0.9% 1,000 ML ONE (09:39)
[2019-01-13 09:57] LABS: Absolute Lymphocytes (CBC) 1.7 K/uL (0.7-4.9); Basophils % 0.3 % (0-1.3); Eosinophils % 4.4 % (0-4.4); Hematocrit 30.2 % (36.0-45.0); Lymphocytes % 27.8 % (15.3-44.8); MPV 8.8 fL (7.6-11.3); Monocytes % 6.3 % (3.3-12.3); RBC Red Blood Cell Count 4.22 M/uL (3.86-4.86)
[2019-01-13 10:01] LABS: Protime INR 1.04
[2019-01-13 10:05] LABS: Urine Blood TRACE (NEG); Urine Glucose NEGATIVE (NEG); Urine Protein 1+ (NEG); Urine pH 6.5 (5.0-7.0)
[2019-01-13] MEDS ORDERED: MORPHINE 4 MG/ML SYR ONE (10:05)
[2019-01-13] MEDS ORDERED: CEFTRIAXONE/SWI 1gm 1 GM/10 ML SYR ONE (10:05)
[2019-01-13] MEDS ORDERED: ONDANSETRON 4 MG/2 ML VIAL ONE (10:05)
[2019-01-13 10:15] LABS: ALT/SGPT 18 U/L (12-78); AST/SGOT 7 U/L (15-37); Albumin 3.8 g/dL (3.4-5.0); Alkaline Phosphatase 69 U/L (45-117); BUN Blood Urea Nitrogen 11 mg/dL (7-18); Bicarbonate 22 mmol/L (21-32); Bilirubin Direct 0.1 mg/dL (0-0.2); Bilirubin Total 0.3 mg/dL (0.2-1.0); CKMB Creatine Kinase MB < 1.0 ng/mL (0.3-3.6); Creatine Phosphokinase 46 U/L (26-192); Glucose Level 74 mg/dL (74-106); Lipase 237 U/L (73-393); Potassium 3.3 mmol/L (3.5-5.1); Protein, Total 7.1 g/dL (6.4-8.2); Sodium Level 139 mmol/L (136-145)
--- NOTE | 2019-01-13 10:19 | RAD REPORT ---
EXAM DESCRIPTION: RAD - Chest Single View - 01/13/2019 10:14 am CLINICAL HISTORY: UTI Chest pain. COMPARISON: ABDOMEN ACUTE SERIES dated 11/22/2012 FINDINGS: Portable technique limits examination quality. The lungs are grossly clear. The heart is normal in size. No displaced fractures. IMPRESSION: No acute intrathoracic process suspected.
[2019-01-13 10:35] LABS: Urine Bacteria LOADED /HPF (<20); Urine Culture Reflex Order REFLEXED; Urine Mucus 2+ /HPF (NONE SEEN)
[2019-01-13] MEDS ORDERED: VANCOMYCIN/NS 1 gm 1 GM/250 ML BAG IV ONE (11:30)
[2019-01-13] MEDS ORDERED: HYDROCODONE/APAP 10/325 TAB ONE (12:11)
[2019-01-13] MEDS ORDERED: DIAZEPAM 5 MG TABLET ONE (12:12)
--- NOTE | 2019-01-13 13:56 | EDPHYS ---
Physician Documentation [facility] Name: Britney Wright Age: 43 yrs Sex: Female : 1975 Arrival Date: 01/13/2019 Time: 08:55 Bed 15 Private MD: Aravind Chauhan E ED Physician Yao Estrada HPI: 01/13 10:51 This 43 yrs old Female presents to ER via Ambulatory with complaints of uti kdr r/o sepsis. 10:51 The patient presents with flank pain, bilaterally, urinary symptoms, dysuria, urgency. kdr Onset: The symptoms/episode began/occurred gradually, 3 week(s) ago. Modifying factors: The symptoms are alleviated by nothing, the symptoms are aggravated by movement, pressure. Associated signs and symptoms: Pertinent positives: fever, nausea, Pertinent negatives: constipation, cramping, diarrhea, dyspareunia, hematuria, nausea. Severity of symptoms: At their worst the symptoms were moderate, in the emergency department the symptoms are unchanged. The patient has not experienced similar symptoms in the past. The patient has been recently seen by a physician: the patient's primary care provider. The patient states that she has been having pain for about three weeks and subjective fevers. She was on Bactrim for about a week initially but the discomfort has never resolved. She continues to have dysuria and bilateral flanks/CVA pain. 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 - Social history:: Smoking status: Patient/guardian denies using tobacco. - Ebola Screening: : No symptoms or risks identified at this time. ROS: 10:51 Constitutional: Negative for objective fever and weight loss - she has hads subjective kdr fever Eyes: Negative for injury, pain, redness, and discharge, Neck: Negative for injury, pain, and swelling, Cardiovascular: Negative for chest pain, palpitations, and edema, Respiratory: Negative for shortness of breath, cough, wheezing, and pleuritic chest pain, Back: Negative for injury and pain, : Negative for injury, bleeding, discharge, and swelling, MS/Extremity: Negative for injury and deformity, Skin: Negative for injury, rash, and discoloration, Neuro: Negative for headache, weakness, numbness, tingling, and seizure activity. Psych: Negative for depression, anxiety, suicide ideation, homicidal ideation, and hallucinations, Allergy/Immunology: Negative for hives, rash, and allergies, Endocrine: Negative for neck swelling, polydipsia, polyuria, polyphagia, and marked weight changes, Hematologic/Lymphatic: Negative for swollen nodes, abnormal bleeding, and unusual bruising. 10:51 Abdomen/GI: Positive for abdominal pain, nausea. 10:51 Back: Positive for pain at rest, pain with movement, flank pain, bilaterally. Exam: 10:51 Constitutional: This is a well developed, well nourished patient who is awake, alert, kdr and in no acute distress. Head/Face: Normocephalic, atraumatic. Eyes: Pupils equal round and reactive to light, extra-ocular motions intact. Lids and lashes normal. Conjunctiva and sclera are non-icteric and not injected. Cornea within normal limits. Periorbital areas with no swelling, redness, or edema. Neck: Trachea midline, no thyromegaly or masses palpated, and no cervical lymphadenopathy. Supple, full range of motion without nuchal rigidity, or vertebral point tenderness. No Meningismus. Chest/axilla: Normal chest wall appearance and motion. Nontender with no deformity. No lesions are appreciated. Cardiovascular: Regular rate and rhythm with a normal S1 and S2. No gallops, murmurs, or rubs. Normal PMI, no JVD. No pulse deficits. Respiratory: Lungs have equal breath sounds bilaterally, clear to auscultation and percussion. No rales, rhonchi or wheezes noted. No increased work of breathing, no retractions or nasal flaring. Skin: Warm, dry with normal turgor. Normal color with no rashes, no lesions, and no evidence of cellulitis. MS/ Extremity: Pulses equal, no cyanosis. Neurovascular intact. Full, normal range of motion. Neuro: Awake and alert, GCS 15, oriented to person, place, time, and situation. Cranial nerves II-XII grossly intact. Motor strength 5/5 in all extremities. Sensory grossly intact. Cerebellar exam normal. Normal gait. Psych: Awake, alert, with orientation to person, place and time. Behavior, mood, and affect are within normal limits. 10:51 Abdomen/GI: Inspection: abdomen appears normal, Bowel sounds: active, all quadrants, Palpation: soft, mild abdominal tenderness, in all quadrants, Liver: no appreciated palpable abnormalities, Hernia: not appreciated. 10:51 Back: pain, that is mild, ROM is painful, normal spinal alignment noted, CVA tenderness, that is moderate, is noted bilaterally. Vital Signs: 09:12 BP 127 / 87; Pulse 97; Resp 18; Temp 98.3; Pulse Ox 100% on R/A; Weight 74.84 kg; ph Height 5 ft. 5 in. (165.10 cm); Pain 7/10; 10:30 BP 118 / 78; Pulse 91; Resp 18; Pulse Ox 99% on R/A; ph 11:30 BP 120 / 81; Pulse 81; Resp 18; Pulse Ox 99% on R/A; ph 12:30 BP 115 / 76; Pulse 78; Resp 20; Pulse Ox 100% on R/A; ph 13:12 BP 117 / 77; Pulse 74; Resp 18; Pulse Ox 98% on R/A; ph 14:25 BP 115 / 78; Pulse 78; Resp 18; Pulse Ox 99% on R/A; ph 09:12 Body Mass Index 27.46 (74.84 kg, 165.10 cm) ph MDM: 10:51 Data reviewed: vital signs, nurses notes, lab test result(s), radiologic studies. kdr Counseling: I had a detailed discussion with the patient and/or guardian regarding: the historical points, exam findings, and any diagnostic results supporting the discharge/admit diagnosis, lab results, radiology results. 13:55 Patient medically screened. [facility] 01/13 09:04 Order name: Basic Metabolic Panel [facility] 01/13 09:04 Order name: Blood Culture Adult (2) [facility] 01/13 09:04 Order name: CBC with Diff [facility] 01/13 09:04 Order name: Ckmb [facility] 01/13 09:04 Order name: CPK [facility] 01/13 09:04 Order name: Lactate; Complete Time: 10:48 [facility] 01/13 09:04 Order name: LFT's; Complete Time: 10:48 [facility] 01/13 09:04 Order name: Lipase; Complete Time: 10:48 [facility] 01/13 09:04 Order name: Procalcitonin; Complete Time: 10:48 [facility] 01/13 09:04 Order name: Protime (+inr); Complete Time: 10:48 [facility] 01/13 09:04 Order name: Ptt, Activated; Complete Time: 10:48 [facility] 01/13 09:04 Order name: Troponin (emerg Dept Use Only); Complete Time: 10:48 [facility] 01/13 09:04 Order name: Urine Microscopic Only; Complete Time: 10:48 [facility] 01/13 09:06 Order name: Basic Metabolic Panel; Complete Time: 10:48 [facility] 01/13 09:04 Order name: Chest Single View XRAY; Complete Time: 13:28 [facility] 01/13 09:06 Order name: Blood Culture [facility] 01/13 09:06 Order name: CBC with Automated Diff; Complete Time: 10:48 [facility] 01/13 09:06 Order name: CKMB Creatine Kinase MB; Complete Time: 10:48 [facility] 01/13 09:06 Order name: Creatine Phosphokinase; Complete Time: 10:48 [facility] 01/13 09:33 Order name: Urine Dipstick--Ancillary (enter results); Complete Time: 10:48 ms 01/13 09:42 Order name: Urine --Ancillary (enter results); Complete Time: 10:48 ms 01/13 10:40 Order name: Urine Culture [facility] 01/13 10:51 Order name: Lactate: Draw at 2 hrs per sepsis bundle protocol; Complete Time: 13:28 [facility] 01/13 09:04 Order name: Accucheck; Complete Time: 10:01 [facility] 01/13 09:04 Order name: Cardiac monitoring; Complete Time: 10:01 [facility] 01/13 09:04 Order name: EKG - Nurse/Tech; Complete Time: 11:26 [facility] 01/13 09:04 Order name: IV Saline Lock - Large Bore; Complete Time: 10:01 [facility] 01/13 09:04 Order name: Labs collected and sent; Complete Time: 10:01 [facility] 01/13 09:04 Order name: O2 Per Protocol; Complete Time: 10:04 [facility] 01/13 09:04 Order name: O2 Sat Monitoring; Complete Time: 10:05 [facility] 01/13 09:04 Order name: Urine Dipstick-Ancillary (obtain specimen); Complete Time: 09:31 kdr Administered Medications: 10:00 Drug: morphine 4 mg Route: IVP; Site: right antecubital; ph 11:03 Follow up: Response: No adverse reaction; Pain is decreased ph 10:00 Drug: Zofran 4 mg Route: IVP; Site: right antecubital; ph 11:04 Follow up: Response: No adverse reaction ph 10:01 Drug: NS 0.9% (30 ml/kg) 30 ml/kg Route: IV; Rate: bolus; Site: right antecubital; ph 10:04 Drug: Rocephin - (cefTRIAXone) 1 grams {Note: given IVP.} Route: IVPB; Infused Over: 30 ph mins; Site: right antecubital; 11:04 Follow up: Response: No adverse reaction; IV Status: Completed infusion ph 11:45 Drug: [place] 10 mg-325 mg 1 tabs Route: PO; ph 14:00 Follow up: Response: No adverse reaction; Pain is decreased ph 11:45 Drug: Valium 5 mg Route: PO; ph 14:06 Follow up: Response: No adverse reaction ph 12:26 Drug: vancoMYCIN 1 grams Route: IVPB; Infused Over: 2 hrs; Site: right antecubital; ph Disposition: 01/13/19 13:55 Discharged to Home. Impression: Urinary tract infection, pyelonephritis. - Condition is Stable. - Discharge Instructions: Pyelonephritis, Adult, [id number], Urinary Tract Infection, Adult, [id number]. - Prescriptions for Levaquin 500 mg Oral Tablet - take 1 tablet by ORAL route once daily for 10 days; 10 tablet. Pyridium 200 mg Oral Tablet - take 1 tablet by ORAL route every 8 hours for 3 days; 9 tablet. Tylenol- Codeine #3 300-30 mg Oral Tablet - take 2 tablet by ORAL route every 6 hours As needed; 30 tablet. - Medication Reconciliation Form, Thank You Letter, Antibiotic Education, Prescription Opioid Use form. - Follow up: Aravind Chauhan MD; When: 2 - 3 days; Reason: If symptoms return, Further diagnostic work-up, Recheck today's complaints, Continuance of care, Re-evaluation by your physician. - Problem is new. - Symptoms have improved. Signatures: Dispatcher [employer] EDYao Ochoa, MD MD kdr Cherri Trejo, RN RN ph Corrections: (The following items were deleted from the chart) 14:34 13:55 01/13/2019 13:55 Discharged to Home. Impression: Urinary tract infection, ph pyelonephritis. Condition is Stable. Forms are Medication Reconciliation Form, Thank You Letter, Antibiotic Education, Prescription Opioid Use. Follow up: Aravind Chauhan; When: 2 - 3 days; Reason: If symptoms return, Further diagnostic work-up, Recheck today's complaints, Continuance of care, Re-evaluation by your physician. Problem is new. Symptoms have improved. kdr
--- NOTE | 2019-01-13 13:56 | ER ---
Nurse's Notes [facility] Name: Britney Wright Age: 43 yrs Sex: Female : 1975 Arrival Date: 01/13/2019 Time: 08:55 Bed 15 Private MD: Aravind Chauhan E Diagnosis: Urinary tract infection, pyelonephritis Presentation: 01/13 09:09 Presenting complaint: Patient states: Seen by Dr Yanes's PA 3 weeks ago and dx w/ UTI, ph tx w/ Bactrim but symptoms did not resolve, saw PA again today who told pt that he was not comfortable treating her further because she may be septic, pt reports burning w/ urination, frequency, suprapubic pain, low back pain and fever, denies N/V/D. Transition of care: patient was not received from another setting of care. Onset of symptoms was January 13, 2019. Risk Assessment: Do you want to hurt yourself or someone else? Patient reports no desire to harm self or others. Initial Sepsis Screen: Does the patient meet any 2 criteria? HR > 90 bpm. Does the patient have a suspected source of infection? Yes: Dysuria/Frequency/Urgency/UTI. Care prior to arrival: None. 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 - Social history:: Smoking status: Patient/guardian denies using tobacco. - Ebola Screening: : No symptoms or risks identified at this time. Screenin:34 Abuse screen: Denies threats or abuse. Denies injuries from another. Nutritional ph screening: No deficits noted. Tuberculosis screening: No symptoms or risk factors identified. Fall Risk None identified. Assessment: 09:30 General: Appears in no apparent distress. comfortable, well groomed, Behavior is ph cooperative, appropriate for age, anxious, Reports chills for fever for > 3 days. Pain: Complains of pain in suprapubic area and mid and low back. Neuro: Level of Consciousness is awake, alert, obeys commands, Oriented to person, place, time, situation. Cardiovascular: Capillary refill < 3 seconds in bilateral fingers Patient's skin is warm and dry. Respiratory: Airway is patent Respiratory effort is even, unlabored, Respiratory pattern is regular, symmetrical, Denies shortness of breath. GI: Abdomen is round non-distended, Bowel sounds present X 4 quads. Reports lower abdominal pain, Patient currently denies diarrhea, nausea, vomiting. : Reports burning with urination, pain in suprapubic area in lower back with urination, urinary frequency. Derm: Skin is intact, Skin is pink, warm \T\ dry. Musculoskeletal: Circulation, motion, and sensation intact. Range of motion: intact in all extremities. 10:30 Reassessment: Patient appears in no apparent distress at this time. Patient and/or ph family updated on plan of care and expected duration. Pain level reassessed. Patient is alert, oriented x 3, equal unlabored respirations, skin warm/dry/pink. 11:34 Reassessment: Patient appears in no apparent distress at this time. Patient and/or ph family updated on plan of care and expected duration. Pain level reassessed. Patient is alert, oriented x 3, equal unlabored respirations, skin warm/dry/pink. Pt c/o pain 5/10 and anxiety, ERP notified, see MAR. 12:45 Reassessment: Patient appears in no apparent distress at this time. Patient and/or ph family updated on plan of care and expected duration. Pain level reassessed. Patient is alert, oriented x 3, equal unlabored respirations, skin warm/dry/pink. Pt resting quietly, reports that pain and anxiety have improved, rates pain 2/10 and denies nausea. 14:00 Reassessment: Patient appears in no apparent distress at this time. Patient and/or ph family updated on plan of care and expected duration. Pain level reassessed. Patient is alert, oriented x 3, equal unlabored respirations, skin warm/dry/pink. Pt resting quietly, awaiting completion of IV antibiotics before d/c. Vital Signs: 09:12 BP 127 / 87; Pulse 97; Resp 18; Temp 98.3; Pulse Ox 100% on R/A; Weight 74.84 kg; ph Height 5 ft. 5 in. (165.10 cm); Pain 7/10; 10:30 BP 118 / 78; Pulse 91; Resp 18; Pulse Ox 99% on R/A; ph 11:30 BP 120 / 81; Pulse 81; Resp 18; Pulse Ox 99% on R/A; ph 12:30 BP 115 / 76; Pulse 78; Resp 20; Pulse Ox 100% on R/A; ph 13:12 BP 117 / 77; Pulse 74; Resp 18; Pulse Ox 98% on R/A; ph 14:25 BP 115 / 78; Pulse 78; Resp 18; Pulse Ox 99% on R/A; ph 09:12 Body Mass Index 27.46 (74.84 kg, 165.10 cm) ph ED Course: 08:55 Patient arrived in ED. as 08:56 Aravind Chauhan MD is Private Physician. as 09:03 Cherri Trejo, PILO is Primary Nurse. ph 09:03 Yao Estrada MD is Attending Physician. kdr 09:12 Triage completed. ph 09:16 Arm band placed on. ph 09:40 Inserted saline lock: 20 gauge in right antecubital area, using aseptic technique. aa5 Blood collected. 09:40 Initial lab(s) drawn, by al, sent to lab. First set of blood cultures drawn by me. aa5 09:50 Second set of blood cultures drawn by al. aa5 10:13 X-ray completed. Portable x-ray completed in exam room. Patient tolerated procedure sw well. 10:19 Chest Single View XRAY In Process Unspecified. EDMS 11:34 Patient has correct armband on for positive identification. Placed in gown. Bed in low ph position. Call light in reach. Side rails up X 1. Pulse ox on. NIBP on. Door closed. Noise minimized. Lights dimmed. Warm blanket given. Pillow given. Head of bed elevated. 13:53 Aravind Chauhan MD is Referral Physician. kdr 14:34 No provider procedures requiring assistance completed. IV discontinued, intact, ph bleeding controlled, No redness/swelling at site. Pressure dressing applied. Administered Medications: 10:00 Drug: morphine 4 mg Route: IVP; Site: right antecubital; ph 11:03 Follow up: Response: No adverse reaction; Pain is decreased ph 10:00 Drug: Zofran 4 mg Route: IVP; Site: right antecubital; ph 11:04 Follow up: Response: No adverse reaction ph 10:01 Drug: NS 0.9% (30 ml/kg) 30 ml/kg Route: IV; Rate: bolus; Site: right antecubital; ph 10:04 Drug: Rocephin - (cefTRIAXone) 1 grams {Note: given IVP.} Route: IVPB; Infused Over: 30 ph mins; Site: right antecubital; 11:04 Follow up: Response: No adverse reaction; IV Status: Completed infusion ph 11:45 Drug: [place] 10 mg-325 mg 1 tabs Route: PO; ph 14:00 Follow up: Response: No adverse reaction; Pain is decreased ph 11:45 Drug: Valium 5 mg Route: PO; ph 14:06 Follow up: Response: No adverse reaction ph 12:26 Drug: vancoMYCIN 1 grams Route: IVPB; Infused Over: 2 hrs; Site: right antecubital; ph Outcome: 13:55 Discharge ordered by . kdr 14:34 Patient left the ED. ph 14:34 Discharged to home ambulatory. ph 14:34 Condition: improved 14:34 Discharge instructions given to patient, Instructed on discharge instructions, follow up and referral plans. medication usage, Demonstrated understanding of instructions, follow-up care, medications, Prescriptions given X 3. Signatures: Dispatcher [employer] EDMS Yao Estrada MD MD kdr Martinez, Amelia as Calderon, Audri RN RN aa5 Cherri Trejo RN RN Damaris Laboy Corrections: (The following items were deleted from the chart) 16:06 11:34 Reassessment: Patient appears in no apparent distress at this time. Patient ph and/or family updated on plan of care and expected duration. Pain level reassessed. Patient is alert, oriented x 3, equal unlabored respirations, skin warm/dry/pink. ph 16:07 13:00 Reassessment: Patient appears in no apparent distress at this time. Patient ph and/or family updated on plan of care and expected duration. Pain level reassessed. Patient is alert, oriented x 3, equal unlabored respirations, skin warm/dry/pink. Pt resting quietly, awaiting completion of IV antibiotics before d/c ph
[2019-01-13 16:05] VITALS: TEMP 98.3
[2019-01-13 16:08] VITALS: BP 117/77; O2SAT 98
--- NOTE | 2019-01-13 16:23 | EKG ---
Test Date: 2019-01-13 Test Time: 10:28:19 Shoe Stainer: KATINA MEASUREMENT RESULTS: Intervals: Rate: 77 DC: 132 QRSD: 78 QT: 372 QTc: 420 [place]: P: 42 DC: 132 QRS: 43 T: 39 INTERPRETIVE STATEMENTS: Normal sinus rhythm Low voltage QRS Borderline ECG Compared to ECG 07/01/2003 20:55:00 Low QRS voltage now present Atrial premature complex(es) no longer present Electronically Signed On 01-13-19 16:22:51 CDT by Yanick Berrios
== END 2019-01-13 14:34 | disposition home or self-care (01) ==
LOC: ER 08:53
DX: N39.0 Urinary tract infection, site not specified (principal); N12 Tubulo-interstitial nephritis, not specified as acute or chronic; F41.9 Anxiety disorder, unspecified; F32.9 Major depressive disorder, single episode, unspecified; Z88.8 Allergy status to other drugs, medicaments and biological substances
CPT/HCPCS: 36415; 71045; 80048; 80076; 81003; 81015; 81025; 82550; 82553; 83605; 83690; 84145; 84484; 85025; 85610; 85730; 87040; 87077; 87086; 87088; 87186; 93005; 96365; 96375; 99284; J0696; J2405; J3370; J7030

== ENCOUNTER 2020-03-14 09:53 | Day surgery (SDC) | payer SELFPAY ==
[2020-03-10 13:39] LABS: Absolute Lymphocytes (CBC) 1.7 K/uL (0.7-4.9); Basophils % 0.2 % (0-1.3); Hematocrit 32.6 % (36.0-45.0); Lymphocytes % 25.1 % (15.3-44.8); MPV 9.5 fL (7.6-11.3); RBC Red Blood Cell Count 4.32 M/uL (3.86-4.86)
[2020-03-10 13:41] LABS: Urine Appearance CLOUDY; Urine Bilirubin NEGATIVE (NEG); Urine Blood NEGATIVE (NEG); Urine Color YELLOW; Urine Glucose NEGATIVE (NEG); Urine Protein NEGATIVE (NEG); Urine Urobilinogen 0.2 mg/dL (0.2-1.0); Urine pH 6.5 (5.0-7.0)
[2020-03-10 13:43] LABS: Urine Microscopic Reflex ORDER UMIC
[2020-03-10 13:46] LABS: Urine Bacteria >50 /HPF (<20); Urine Culture Reflex Order REFLEXED; Urine RBC <5 /HPF (NONE SEEN)
--- OUTSIDE RECORDS SUMMARY | 2020-03-14 09:56 | XMS REPORT | Continuity of Care Document ---
:1975 Author Organization [facility] t Address [address] [place] [address] [address]. Gu[address]ro [address] [place] [address] Care Team Providers Name Role Phone Unavailable Unavailable Unavailable Problems This patient has no known problems. Allergies, Adverse Reactions, Alerts This patient has no known allergies or adverse reactions. Medications This patient has no known medications. Procedures This patient has no known procedures. Results Test Description Test Time Test Comments Results Result Comments Source Urine Culture 2019-12-30 12:17:12 Test Item Value Reference Range Interpretation Comme nts ORGANISM (test code = ORGANISM) Escherichia coli Amikacin (test code = Amik) S Ampicillin (test code = Amp) R Ampicillin/Sulbactam (test code = R Amp/Sul) Cefazolin (test code = Cefaz) R Cefepime (test code = Cefep) R Cefoxitin (test code = Cefox) R Ceftazidime (test code = Ceftaz) R Ceftriaxone (test code = Ceftri) R Ciprofloxacin (test code = Cipro) R Gentamicin (test code = Gent) R Levofloxacin (test code = Levo) R Meropenem (test code = Eloy) S Nitrofurantoin (test code = Nitro) I Piperacillin/Tazobactam (test code = S Pip/Rishi) Tobramycin (test code = Tobra) I Trimethoprim/Sulfa (test code = SXT) R Final Report (test code = Final Report) >=100,000 cfu/ml Escherichi a coli 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 Dose reduction technique performed per ALARA.FINDINGS: Decreased attenuation of the blood pool relative to the myocardium noted, raising question of underlying anemia. Included lung bases are clear. Small hiatal hernia noted. Liver, gallbladder, pancreas, spleen, and adrenal glands unremarkable. Urinary bladder is moderately distended with mild symmetric fullness of the proximal collecting systems. No obstructing radiopaque stone identified. Multiple small nonobstructing nephrolithiasis noted in bilateral kidneys. No bowel obstruction. Terminal ileum and appendix unrema rkable. Moderate colonic fecal retention identified with tortuous appearance of the distal colon. Anteverted uterus present with possible subcentimeter dorsal fibroid involving the lower uterine segment. 2.5 cm follicular cyst also suspected in the left adnexa. No free air or fluid. No aneurysm or adenopathy. Rectus diastasis noted. Osseous structures appear intact.IMPRESSION:1. Moderately distended urinary bladder with symmetric fullness of bilateral proximal collecting systems. Small nonobstructing nephrolithiasis identified without visualized obstructing radiopaque stone.2. Normal-appearing appendix.3. Suspected subcentimeter fibroid dorsal lower uterine segment along with possible 2.5 cm follicular cyst left ovary. Nonemergent/outpatient follow-up pelvic sonogram could be utilized for furthercharacterization if clinically indicated. Final Dictated by: MD Sybil, Corinna DT/TM: 12/29/2019 6:31 pmSigned by: MD Sybil, Darnell (Electronic Signature): 12/29/2019 6:37 pmUrinalysis with Culture, if [id number] 18:32:55 Test Item Value Reference Range Interpretation Comments UA Color (test code = UA Yellow Yellow Color) UA Appear (test code = Turbid Clear A UA Appear) UA pH (test code = UA 5.5 pH) UA Spec Grav (test code 1.015 SGU 1.005-1.030 = UA Spec Grav) UA Glucose (test code = Negative Negative UA Glucose) UA Bili (test code = UA Negative Negative Bili) UA Ketones (test code = Negative Negative UA Ketones) UA Blood (test code = UA Negative Negative Blood) UA Protein (test code = 1+ Negative A UA Protein) UA Urobilinogen (test 0.2 EU/dL >0.2 code = UA Urobilinogen) UA Nitrite (test code = Negative Negative UA Nitrite) UA Leuk Est (test code = 3+ Negative A UA Leuk Est) UA Micro Ind? (test code Indicated Not Indicated A Re sult created by = UA Micro Ind?) rule GL_SET_UA_MICRO _IND Urinalysis [id number] 18:32:55 Test Item Value Reference Range Interpretation Comments UA WBC (test code = UA WBC) >100 /HPF 0-5 A UA RBC (test code = UA RBC) 21-50 /HPF 0-4 A UA Bacteria (test code = UA 4+ /HPF Negative A Bacteria) UA Squam Epithelial (test code = TNTC /LPF N UA Squam Epithelial) UA Yeast (test code = UA Yeast) Few /HPF None A UA Hyal Cast (test code = UA Hyal 1-6 /LPF 1-6 Cast) HCG Qualitative [id number] 17:43:37 Test Item Value Reference Range Interpretation Comments hCG Ur (test code = Negative Negative Test res ults should be hCG Ur) confirmed using a serum sample prior to the perfromance of any critical medica l procedure. [id number] 16:45:17 Test Item Value Reference Range Interpretation Comments Amylase Level (test code = 55 IntlUnit/L 25-115 Amylase Level) Comprehensive Metabolic [id number] 16:45:17 Test Item Value Reference Range Interpretation Comments Sodium Level (test code = 138 mmol/L 136-145 Sodium Level) Potassium Level (test code = 4.5 mmol/L 3.5-5.1 Potassium Level) Chloride Level (test code = 109 mmol/L 98-107 H Chloride Level) CO2 (test code = CO2) 24 mmol/L 21-32 Anion Gap (test code = Anion 5 mmol/L 7-16 L Gap) BUN (test code = BUN) 13 mg/dL 7-18 Creatinine Level (test code = 0.9 mg/dL 0.6-1.0 Creatinine Level) Glucose Level (test code = 87 mg/dL 74-106 Glucose Level) Calcium Level (test code = 8.2 mg/dL 8.5-10.1 L Calcium Level) Alk Phos (test code = Alk Phos) 82 IntlUnit/L 50-136 Bilirubin Total (test code = 0.3 mg/dL 0.2-1.0 Bilirubin Total) Albumin Level (test code = 3.7 g/dL 3.4-5.0 Albumin Level) Protein Total (test code = 6.9 g/dL 6.4-8.2 Protein Total) ALT (test code = ALT) 20 IntlUnit/L 12-78 AST (test code = AST) 19 IntlUnit/L 15-37 Comprehensive Metabolic [id number] 16:45:17 Test Item Value Reference Range Interpretation Comments Sodium Level (test code = 138 mmol/L 136-145 Sodium Level) Potassium Level (test code 4.5 mmol/L 3.5-5.1 = Potassium Level) Chloride Level (test code 109 mmol/L 98-107 H = Chloride Level) CO2 (test code = CO2) 24 mmol/L 21-32 Anion Gap (test code = 5 mmol/L 7-16 L Anion Gap) BUN (test code = BUN) 13 mg/dL 7-18 Creatinine Level (test 0.9 mg/dL 0.6-1.0 code = Creatinine Level) Glucose Level (test code = 87 mg/dL 74-106 Glucose Level) Calcium Level (test code = 8.2 mg/dL 8.5-10.1 L Calcium Level) Alk Phos (test code = Alk 82 IntlUnit/L 50-136 Phos) Bilirubin Total (test code 0.3 mg/dL 0.2-1.0 = Bilirubin Total) Albumin Level (test code = 3.7 g/dL 3.4-5.0 Albumin Level) Protein Total (test code = 6.9 g/dL 6.4-8.2 Protein Total) ALT (test code = ALT) 20 IntlUnit/L 12-78 AST (test code = AST) 19 IntlUnit/L 15-37 eGFR AA (test code = eGFR >60 mL/min/1.73 m2 N AA) Lipase [id number] 16:45:17 Test Item Value Reference Range Interpretation Comments Lipase Level (test code = 58 IntlUnit/L 73-393 L Lipase Level) Comprehensive Metabolic [id number] 16:45:17 Test Item Value Reference Range Interpretation Comments Sodium Level (test code = 138 mmol/L 136-145 Sodium Level) Potassium Level (test code 4.5 mmol/L 3.5-5.1 = Potassium Level) Chloride Level (test code 109 mmol/L 98-107 H = Chloride Level) CO2 (test code = CO2) 24 mmol/L 21-32 Anion Gap (test code = 5 mmol/L 7-16 L Anion Gap) BUN (test code = BUN) 13 mg/dL 7-18 Creatinine Level (test 0.9 mg/dL 0.6-1.0 code = Creatinine Level) Glucose Level (test code = 87 mg/dL 74-106 Glucose Level) Calcium Level (test code = 8.2 mg/dL 8.5-10.1 L Calcium Level) Alk Phos (test code = Alk 82 IntlUnit/L 50-136 Phos) Bilirubin Total (test code 0.3 mg/dL 0.2-1.0 = Bilirubin Total) Albumin Level (test code = 3.7 g/dL 3.4-5.0 Albumin Level) Protein Total (test code = 6.9 g/dL 6.4-8.2 Protein Total) ALT (test code = ALT) 20 IntlUnit/L 12-78 AST (test code = AST) 19 IntlUnit/L 15-37 eGFR AA (test code = eGFR >60 mL/min/1.73 m2 N AA) eGFR Non-AA (test code = >60 mL/min/1.73 m2 N eGFR Non-AA) IG [id number] 16:08:29 Test Item Value Reference Range Interpretation Comments IG (test code = IG) 0 % 0-5 IG Abs (test code = IG Abs) 0 x10 N Complete Blood Count with [id number] 16:08:28 Test Item Value Reference Range Interpretation Comments WBC (test code = WBC) 9.1 x10 4.8-10.8 RBC (test code = RBC) 4.31 x10 4.20-5.50 Hgb (test code = Hgb) 9.9 g/dL 12.0-16.0 L Hct (test code = Hct) 34.8 % 35.0-47.0 L MCV (test code = MCV) 80.7 fL 80.0-95.0 RDW (test code = RDW) 21.6 % 11.5-14.5 N MCHC (test code = MCHC) 28.4 g/dL 31.0-36.0 L MCH (test code = MCH) 23.0 pg 26.0-32.0 L Platelets (test code = 307 x10 140-440 Platelets) MPV (test code = MPV) 11.5 fL 7.5-11.2 H Slide Review (test code Auto N Resu lt created by = Slide Review) GL_SET_SLIDE _REVIEW_A UTO Automated [id number] 16:08:28 Test Item Value Reference Range Interpretation Comments Neutro Auto (test code = Neutro Auto) 63.7 % N Lymph Auto (test code = Lymph Auto) 21.5 % N Josephine Auto (test code = Josephine Auto) 5.0 % N Eos, Auto (test code = Eos, Auto) 9.1 % N Basophil Auto (test code = Basophil 0.4 % N Auto) Neutro Absolute (test code = Neutro 5.8 x10 2.7-7.3 Absolute) Lymph Absolute (test code = Lymph 2.0 x10 0.8-3.5 Absolute) Josephine Absolute (test code = Josephine 0.4 x10 0.3-0.9 Absolute) Eos Absolute (test code = Eos 0.8 x10 0.0-0.3 H Absolute) Baso Absolute (test code = Baso 0.0 x10 0.0-0.1 Absolute)
[2020-03-14] MEDS ORDERED: BUPIVACA 0.25%/EPI 0.0005%/PF 30 ML VIAL ONE (10:27)
[2020-03-14] MEDS ORDERED: SCOPOLAMINE HYDROBROMIDE PATCH TD ONE (10:35)
[2020-03-14] MEDS ORDERED: Ringers Lactate 1,000 ML IV ONE ×2 (10:35→14:09)
[2020-03-14] MEDS ORDERED: HEPARIN 5000 UNIT/ML 1 ML VIAL ONE (10:35)
[2020-03-14] MEDS ORDERED: CEFAZOLIN/SWI 2gm 2 GM/20 ML SYR ONE (10:36)
[2020-03-14] MEDS ORDERED: BUPIVACAINE 0.25% PF 30 ML VIAL ONE (10:42)
[2020-03-14] MEDS ORDERED: KETOROLAC 30 MG/ML INJ ONE ×2 (11:19→11:58)
[2020-03-14] MEDS ORDERED: FENTANYL CITR 100 MCG/2 ML ONE (11:26)
[2020-03-14] MEDS ORDERED: ONDANSETRON 4 MG/2 ML VIAL ONE ×2 (11:26→16:04)
[2020-03-14] MEDS ORDERED: propofoL 200 MG/20 ML VIAL IV ONE (11:53)
[2020-03-14] MEDS ORDERED: FENTANYL CITR 250 MCG/5 ML ONE (11:54)
[2020-03-14] MEDS ORDERED: LIDOCAINE 2% MPF 5 ML VIAL ONE (11:54)
[2020-03-14] MEDS ORDERED: ROCURONIUM 50 MG/5 ML VIAL IV ONE (11:54)
[2020-03-14] MEDS ORDERED: MIDAZOLAM HCL 2 MG/2 ML INJ ONE (11:55)
[2020-03-14] MEDS ORDERED: dexAMETHasone 10 MG/ML VIAL ONE (11:58)
[2020-03-14] MEDS ORDERED: LANO/MINERAL OIL/PETRO 3.5 GM ONE (12:40)
[2020-03-14] MEDS ORDERED: VECURONIUM 10 MG/VIAL IV ONE (13:22)
[2020-03-14] MEDS ORDERED: NS 0.9% VIAL 10 ML ONE (13:22)
[2020-03-14] MEDS ORDERED: VASOPRESSIN 20 UNIT/ML VIAL ONE (13:28)
[2020-03-14] MEDS ORDERED: NEOSTIGMINE 1 MG/ML -5 ML ONE (15:34)
[2020-03-14] MEDS ORDERED: GLYCOPYRROLATE 0.2 MG/ML SYR ONE (15:34)
[2020-03-14] MEDS: HYDROMORPHONE HCL 1 MG/ML INJ ONE ×2 (15:55→16:09)
[2020-03-14] MEDS ORDERED: HYDROMORPHONE HCL 1 MG/ML INJ ONE (16:05)
[2020-03-14] MEDS: MEPERIDINE HCL 25 MG/ML SYR ONE ×2 (16:16→16:22)
[2020-03-14] MEDS ORDERED: HYDROCODONE/APAP 5/325 MG TAB ONE (17:23)
[2020-03-14 18:31] VITALS: TEMP 97.5
[2020-03-14 18:34] VITALS: BP 129/87
[2020-03-14 18:36] VITALS: O2SAT 99
--- NOTE | 2020-03-15 00:38 | OP ---
Date of Procedure: 03/14/2020 Surgeon: Claire Self MD Desk Assistant: Carlita Malin. Preoperative Diagnoses: Menorrhagia with irregular cycles, abnormal uterine bleeding/dysmenorrhea, p elvic pain, deep dyspareunia, incomplete bladder emptying. Postoperative Diagnoses: Menorrhagia with irregular cycles, abnormal uterine bleeding/dysmenorrhea, pelvic pain, deep dyspareunia, incomplete bladder emptying, and endometriosis. Procedures Performed: Total laparoscopic hysterectomy, bilateral salpingo-oophorectomy, endometriosi s excision, cystoscopy, vaginal morcellation for retrieval of specimen. Anesthesia: General endotracheal. Specimens: Left uterosacral endometriosis. Then, uterus, bilateral tubes, and ovaries. Complications: No complications. Drains: No drains. Estimated Blood Loss: Less than 50. Urine Output: 200. Findings: Endometriosis in left uterosacral ligament and others spots included with the specimen. L arge posterior leiomyoma. Normal appendix, ovaries, and tubes. Cystoscopy normal with patent bilate ral ureters. Indications: The patient is a 44-year-old referred for pelvic pain and bleeding, leading to anemia, worked her up. On ultrasound, she had a large posterior wall leiomyoma. On endometrial sampling, th e endometrium did not have any atypia or malignancy. Her exam was very significant for right upper q uadrant and right lower quadrant pain and left upper quadrant and left lower quadrant pain as well. No periumbilical tenderness was elicited multiple times in the office and the pelvic exam was also te nder, however, no GC was done, negative. No evidence of any infection. Endometriosis was suspected given her clinical symptoms. Discussed about all the options, all the alternatives for treatment inc luding IUD, ablation with laparoscopy, endometriosis excision, laparoscopic hysterectomy, bilateral s alpingo-oophorectomy, depot medroxyprogesterone. All were discussed. Due to the pain, which is a si gnificant complaint, she wanted to go ahead with hysterectomy with removal of tubes and ovaries, and endometriosis excision. Given her scars, bladder and ureteric injury were all discussed. S he was consented and brought to the OR. Description Of Procedure: After informed consent was verified, 2 g of Ancef were given. She was levar en back to OR, placed in a supine fashion on the operating table. General anesthesia given, placed i n dorsal lithotomy position using Charles stirrups. Arms tucked by the side. SCDs started and abdomen , vulva, vagina, and perineum prepped and draped in normal sterile fashion. Brennan was placed to drai n the bladder. Speculum was placed to expose the cervix. Anterior lip grasped with 2 Allis clamps. VCare introduced into the uterus along and fixed in place. The bladder was attached first to retrograde filling. Once the abdomen was approached, a 1 cm infraumbilical incision made with a scalpel using the open la paroscopy technique. Fascia incised and tagged with 0 Vicryl sutures. S retractors were placed. Odell sson introduced. Site of entry checked, after insufflation, unremarkable. Upper abdominal surface n egative. Lower abdominal surfaces, no clear evidence of endometriosis, however, large posterior leio myoma was seen. Two 5 lateral ports were placed on the right and left and the 10 suprapubic port was placed without any problems in the left upper quadrant. The bowel was retracted with a 3-0 Monocryl and held with hemostats for retraction. After noting the anatomy in the pelvic cavity, the ureters on both sides were undisplaced and there w ere no scars. However, given the presence of the large posterior leiomyoma, almost on the cervix of the patient, very close to the proximal part of the cervix with the patient, the displacement of this made the ureter on the right side in proximity to the uterus and the uterine specimen and the fibroi d. However, on dissection, once the peritoneum was dissected away, it was deemed that this would not be a problem. The left tube was dissected. The left infundibulopelvic ligament was taken down. Then, ovary was le ft attached. Mesosalpinx and round ligament were taken down. Broad ligament was taken down as well. Then, opened up on anterior and posterior leaves anteriorly. There was small amount of scar tissue and this was carefully dissected and the bladder flap raised. Anterior vaginal wall exposed and zachery dder inferiorly dissected. Posteriorly, the peritoneum was opened up. There was endometriosis at th e distal uterosacral ligament, so this was carefully picked up. Dissection performed lateral to it j ust in the peritoneal level and peritoneum was excised. Then, the implant was removed. Then, the pe ritoneum taken down to expose the posterior uterosacral ligament. Once the vessels on the left side were exposed on the opposite side, the tube was removed, then the o vary was detached and placed in the posterior cul-de-sac. Then, the round ligament taken down. The broad ligament was skeletonized. There were larger vessels in the broad ligament, most likely the on es that were feeding the fibroid, so these were taken down and due to the worry about possible openin g and poor vessel seal due to the size of the vessels, two 5 mm clips were placed. Then, vessels wer e skeletonized to the large uterine vein. Once the cup was visualized in its entirety anteriorly and posteriorly, then medial dissection was performed to create a space for taking down the vessels, the n systematically took the vessels down with the bipolar basket tip and the LigaSure. Cardinal ligame nts were taken down as well. Then, on the left side, similar dissection was performed and this was e xposed, taken down with bipolar basket tip and the LigaSure. The cardinal ligaments were taken down with the LigaSure as well. Then, circumferential colpotomy with a monopolar hook blade. Specimen re trieved through the vagina. This did not fit through the vagina normally, so I had to go down below and put a speculum in the pos terior aspect and 2 speculums on the anterior wall and #10 blade was used to morcellate the lower asp ect of the uterus and the fibroid from the uterus. This was then easily scooted out. Onc e the specimen was retrieved through the vagina, a vaginal occluder was placed with a sponge tucked i n a glove. Gloves were changed. Thorough irrigation suction was performed. At the distal uterosacral, there wa s some dilated vessels likely feeding the fibroid at this location. Once these were cauterized with the tip of the basket tip bipolar, excellent hemostasis was secured. Both ureters were unharmed and appeared to have good peristalsis. The vessels on the left side and the uterine artery were clipped with a 5 mm clip just to make sure that this was well sealed. Closure with simple 0 PDS sutures at both angles and 3 pznaxs-te-calgo in the center included the pos terior fascia with the anterior fascia with good closure and apical support. Then, peritoneum closed with the help of 3-0 Monocryl without any problems, intracorporeal knots. All the pedicles had exce llent hemostasis. All the trocar sites had good hemostasis. Everything was injected at the entry an d exit with 0.25% Marcaine. After gas desufflated in a closed fashion and the trocars were removed, incisions closed with the fascia with 0 Vicryl suture in [id number] and a simple 0 Vicryl in the suprapubic area. All skin incisions were closed with 4-0 Vicryl interrupted. EBL was minimal. Cystoscopy was performed once the Brennan was removed and vaginal occluder was removed. Then, a 17-Dandre [facility] sheath, 30-degree lens, normal saline used for cystoscopy. Excellent streams of urine from both ureteric orifices. Very mild evidence of inflammation on the transitional epithelium. No evidence o f any tumors. No evidence of any trauma to the bladder. After bladder was drained, I was able to recover the patient. Instrument, needle, and sponge counts were correct at the end of the case. The patient tolerated the procedure well. PHILIP/DESI Voice ID: [id number] Report ID: [id number]
== END 2020-03-14 18:30 | disposition home or self-care (01) ==
LOC: OR 09:53
PROVIDERS: ATTEND Obstetrics & Gynecology
PROC: 0UT24ZZ Resection of Bilateral Ovaries, Percutaneous Endoscopic Approach (ICD-10-PCS; 2020-03-14)
PROC: 0UT74ZZ Resection of Bilateral Fallopian Tubes, Percutaneous Endoscopic Approach (ICD-10-PCS; 2020-03-14)
PROC: 0DBW4ZZ Excision of Peritoneum, Percutaneous Endoscopic Approach (ICD-10-PCS; 2020-03-14)
PROC: 0UT94ZZ Resection of Uterus, Percutaneous Endoscopic Approach (ICD-10-PCS; principal; 2020-03-14 11:00)
DX: N92.1 Excessive and frequent menstruation with irregular cycle (principal); N94.6 Dysmenorrhea, unspecified; N94.12 Deep dyspareunia; N93.9 Abnormal uterine and vaginal bleeding, unspecified; R33.9 Retention of urine, unspecified; N80.0 Endometriosis of uterus; N84.0 Polyp of corpus uteri; N71.1 Chronic inflammatory disease of uterus; D25.9 Leiomyoma of uterus, unspecified; N83.8 Other noninflammatory disorders of ovary, fallopian tube and broad ligament; N83.11 Corpus luteum cyst of right ovary; D50.9 Iron deficiency anemia, unspecified; F41.9 Anxiety disorder, unspecified; F32.9 Major depressive disorder, single episode, unspecified; Z79.899 Other long term (current) drug therapy
CPT/HCPCS: 36415; 81003; 81015; 81025; 85025; 86850; 86900; 86901; 87077; 87086; 87088; 87186; 88305; 88307; J0690; J1100; J1170; J1644; J2175; J2250; J2405; J2704; J2710; J3010; J7120; U0002